=== PATIENT | male | born 1945 | race Caucasian/White ===

== ENCOUNTER 2019-01-16 11:47 | Emergency (ER) | payer MEDICARE ==
[2019-01-16 12:07] VITALS: RESP 18
[2019-01-16] MEDS ORDERED: PROPARACAINE 0.5% OPHTH DROPS 15 ML BTL LEFT EYE STA (12:45)
[2019-01-16] MEDS ORDERED: IBUPROFEN 800 MG TAB PO STA (12:45)
--- NOTE | 2019-01-16 12:45 | ED ---
Eye Problem HPI - General Chief complaint: Eye Problems Stated complaint: water blister left eye Time Seen by Provider: 01/16/19 12:16 Source: patient, RN notes reviewed, old records reviewed Mode of arrival: ambulatory Limitations: no limitations - History of Present Illness Initial comments: This is a 73-year-old male the ER for evaluation. Patient does say for evaluation of left eye pain. Patient is recent diagnosis of water spot water blister left eye was improving with eyedrops but currently is worsening he did come back and has not having or pain. Patient has no other complaints aside from. Denies any vision changes MD chief complaint: eye pain (r), eye redness, other (recent eye surgery) -: hour(s) Onset Description: gradual Location: left eye Place: home If Injury: none Eye Symptoms: burning, redness, pain Severity: mild, moderate Severity scale (1-10): 2 If Pain, Quality: burning, aching Consistency: constant Context: recent eye procedure Associated Symptoms: none Treatments Prior to Arrival: none - Related Data Home Medications Medication Instructions Recorded Confirmed Aspirin EC [Ecotrin Low Dose] 81 mg PO HS 01/16/19 01/16/19 Levocetirizine Dihydrochloride 5 mg PO HS 01/16/19 01/16/19 Magnesium Oxide [Mag-Ox] 250 mg PO HS 01/16/19 01/16/19 Metoprolol Succinate [Toprol Xl] 100 mg PO HS 01/16/19 01/16/19 Multivitamins, Thera [Multivitamin 1 tab PO HS 01/16/19 01/16/19 (formulary)] Simvastatin [Zocor] 20 mg PO HS 01/16/19 01/16/19 amLODIPine BESYLATE/BENAZEPRIL 1 cap PO Q48H 01/16/19 01/16/19 [Lotrel 10-20 MG] Allergies Allergy/AdvReac Type Severity Reaction Status Date / Time codeine Allergy Unknown Verified 01/16/19 12:20 Review of Systems ROS Statement: Those systems with pertinent positive or pertinent negative responses have been documented in the HPI. ROS Other: All systems not noted in ROS Statement are negative. Past Medical History Past Medical History: COPD, Hyperlipidemia, Hypertension History of Any Multi-Drug Resistant Organisms: None Reported Past Surgical History: Appendectomy Additional Past Surgical History / Comment(s): cataract Past Psychological History: No Psychological Hx Reported Smoking Status: Current every day smoker Past Alcohol Use History: None Reported Past Drug Use History: None Reported General Exam - General Exam Comments Initial Comments: Patient does have pterygium of lateral aspect left eye Limitations: no limitations General appearance: alert, in no apparent distress Head exam: Present: atraumatic, normocephalic, normal inspection Eye exam: Present: normal appearance, PERRL, EOMI. Absent: scleral icterus, conjunctival injection, periorbital swelling ENT exam: Present: normal exam, mucous membranes moist Neck exam: Present: normal inspection. Absent: tenderness, meningismus, lymphadenopathy Respiratory exam: Present: normal lung sounds bilaterally. Absent: respiratory distress, wheezes, rales, rhonchi, stridor Cardiovascular Exam: Present: regular rate, normal rhythm, normal heart sounds. Absent: systolic murmur, diastolic murmur, rubs, gallop, clicks GI/Abdominal exam: Present: soft, normal bowel sounds. Absent: distended, t enderness, guarding, rebound, rigid Extremities exam: Present: normal inspection, full ROM, normal capillary refill. Absent: tenderness, pedal edema, joint swelling, calf tenderness Back exam: Present: normal inspection Neurological exam: Present: alert, oriented X3, CN II-XII intact Psychiatric exam: Present: normal affect, normal mood Skin exam: Present: warm, dry, intact, normal color. Absent: rash Course Vital Signs 01/16/19 12:04 Temperature 98.2 F Pulse Rate 71 Respiratory 18 Rate Blood Pressure 122/81 O2 Sat by Pulse 98 Oximetry - Reevaluation(s) Reevaluation #1: 01/16/19 12:45 medical history is reviewed Reevaluation #2: 01/16/19 13:13 The patient's pain is improved Medical Decision Making - Medical Decision Making 73 male the ER for evaluation appears to have taken left eye, mild chemosis. Patient will continue artificial tears as symptomatically treatment and can be discharged Disposition Clinical Impression: Pterygium of left eye Disposition: HOME SELF-CARE Condition: Good Instructions (If sedation given, give patient instructions): Pterygium (ED) Is patient prescribed a controlled substance at d/c from ED?: No Referrals: Gómez Palomino DO [Primary Care Provider] - 1-2 days
[2019-01-16 13:31] VITALS: BP 120/71; PULSE 75; TEMP 98
== END 2019-01-16 13:31 | disposition home or self-care (01) ==
LOC: EC 11:47
DX: H11.002 Unspecified pterygium of left eye (principal); H11.422 Conjunctival edema, left eye; F17.200 Nicotine dependence, unspecified, uncomplicated; E78.5 Hyperlipidemia, unspecified; I10 Essential (primary) hypertension; Z79.82 Long term (current) use of aspirin; Z79.899 Other long term (current) drug therapy; Z88.5 Allergy status to narcotic agent
CPT/HCPCS: 99283

== ENCOUNTER → 2022-10-23 | Outpatient (CLI) | payer MEDICARE ==
[2022-10-23 13:33] LABS: African American GFR (CKD) >90 (>60 ml/min/1.73 sqM); Blood Urea Nitrogen 11 mg/dL (9-20); Non-African American GFR(CKD) 87 (>60 ml/min/1.73 sqM)
--- NOTE | 2022-10-23 14:36 | CT ---
EXAMINATION TYPE: CT chest w con DATE OF EXAM: 10/23/2022 COMPARISON: Chest CT May 02, 2010 HISTORY: SOB, COPD. Chronic bronchitis. CT DLP: 228.8 mGycm. Automated Exposure Control for Dose Reduction was Utilized. TECHNIQUE: CT scan of the thorax is performed following with IV Contrast, patient injected with 100 mL of Isovue 300. FINDINGS: LUNGS: Moderate to advanced underlying emphysematous change with posttreatment change through the rig ht upper lung as there is scarring and sutures extending from the right hilum. There are superior rig ht hilar retraction. Mild bibasilar linear scarring and/or atelectasis. No pleural effusion or pneumo thorax seen bilaterally. MEDIASTINUM: There are few prominent but subcentimeter lymph nodes throughout the mediastinum and rig ht hilar region. No greater than 1 cm thyroid adenopathy. No cardiomegaly. No pericardial effusion is seen. There is moderate to severe coronary artery calcification and/or stents present which is no tunde marker of underlying coronary artery disease. Ascending aortic aneurysm up to 4.1 cm axial image 35. Mild to moderate left atrial dilatation. OTHER: Degenerative narrowing bilateral glenohumeral joints. A thin-walled in the right kidney is jeannie pected and partially imaged on last axial images. IMPRESSION: Fairly advanced emphysematous change with posttreatment change to the right upper lung. N o acute pulmonary process.
== END | disposition home or self-care (01) ==
LOC: RADCTMAIN 12:51
PROVIDERS: ATTEND Family Medicine
DX: J43.9 Emphysema, unspecified (principal); J42 Unspecified chronic bronchitis
CPT/HCPCS: 82565; 84520; 71260; 36415; Q9967

== ENCOUNTER → 2023-09-15 | Outpatient (CLI) | payer MEDICARE ==
--- NOTE | 2023-09-15 09:02 | US ---
EXAMINATION TYPE: US abdomen limited DATE OF EXAM: 09/15/2023 COMPARISON: NONE CLINICAL INDICATION: Male, 78 years old with history of R10.11 RIGHT UPPER QUADRANT PAIN; RUQ pain x 1 week TECHNIQUE: Multiple sonographic images of the right upper quadrant are obtained. FINDINGS: EXAM MEASUREMENTS: Liver Length: 14.8 cm Gallbladder Wall: 0.2 cm CBD: 0.3 cm Right Kidney: 11.9x4.3x5.0 cm ANODISER NOTES: Pancreas: Tail obscured by overlying bowel gas Liver: 0.7x0.8x0.7cm anechoic area at the inferior lateral aspect of the right lobe Gallbladder: several mobile hyperechoic areas noted within measuring up to 0.9cm Evidence for sonographic Cardenas's sign: No CBD: wnl Right Kidney: 2.4x2.6x2.9cm septated cystic area noted at the lateral/mid kidney exam slightly limited by bowel gas IMPRESSION: 1. No evidence for acute process. 2. Right renal cyst with thin septation. 3. Simple appearing hepatic cyst. 4. Cholelithiasis.
== END | disposition home or self-care (01) ==
LOC: RADUSWWP 08:03
PROVIDERS: ATTEND Internal Medicine
DX: K80.20 Calculus of gallbladder without cholecystitis without obstruction (principal); K76.89 Other specified diseases of liver; N28.1 Cyst of kidney, acquired
CPT/HCPCS: 76705

== ENCOUNTER → 2023-09-26 | Outpatient (CLI) | payer MEDICARE ==
[2023-09-26 15:49] LABS: HCT 44.7 % (39.6-50.0); HGB 14.6 g/dL (13.0-17.0); MCH 32.2 pg (27.0-32.0); MCHC 32.7 g/dL (32.0-37.0); MCV 98.5 FL (80.0-97.0); Mean Platelet Volume 10.1 FL (9.5-12.2); NRBC Per 100 WBC 0 X 10*3/uL (0.00-0.01); Platelet Count 316 X 10*3/uL (140-440); RBC 4.54 X 10*6/uL (4.40-5.60); RDW 13.7 % (11.5-14.5); WBC 5.96 X 10*3/uL (4.50-10.00)
[2023-09-26 16:02] LABS: ALT 29 U/L (10-49); AST 40 U/L (14-35); Albumin 4.2 g/dL (3.8-4.9); Albumin/Globulin Ratio 1.75 Ratio (1.60-3.17); Alkaline Phosphatase 111 U/L (41-126); Blood Urea Nitrogen 10.8 mg/dL (9.0-27.0); Calcium 9.5 mg/dL (8.7-10.3); Carbon Dioxide 27.6 mmol/L (21.6-31.8); Chloride 100 mmol/L (96-109); Globulin 2.4 g/dL (1.6-3.3); Glucose 87 mg/dL (70-110); Potassium 4.9 mmol/L (3.5-5.5); Sodium 140 mmol/L (135-145); Total Bilirubin 0.4 mg/dL (0.3-1.2); Total Protein 6.6 g/dL (6.2-8.2)
== END | disposition home or self-care (01) ==
LOC: LABWHC1 11:55
PROVIDERS: ATTEND Surgery
DX: K80.20 Calculus of gallbladder without cholecystitis without obstruction (principal)
CPT/HCPCS: 36415; 80053; 85027

== ENCOUNTER 2023-10-06 06:18 | Day surgery (SDC) | payer MEDICARE ==
[2023-10-06] MEDS: LACTATED RINGERS 1,000 ML IV SCH (06:52)
[2023-10-06] MEDS: DEXAMETHASONE SOD PHOSPHATE 4 MG/ML 1 ML VIAL IV ONE (07:10)
[2023-10-06] MEDS: ACETAMINOPHEN TAB 500 MG TAB PO PRN (07:10)
[2023-10-06] MEDS: ONDANSETRON 4 MG/2 ML VIAL IVP ONE (07:10)
[2023-10-06] MEDS: HEPARIN SODIUM,PORCINE 5,000 UNIT/ML 1 ML VIAL SQ PRN (07:11)
[2023-10-06] MEDS ORDERED: PHENYLEPHRINE 10 MG/ML VIAL ONE (07:32)
[2023-10-06] MEDS ORDERED: NEOSTIGMINE 1 MG/ML 10 ML VIAL ONE (07:32)
[2023-10-06] MEDS ORDERED: SUCCINYLCHOLINE CHLORIDE 200 MG/10 ML VIAL IV ONE (07:32)
[2023-10-06] MEDS ORDERED: fentaNYL (PF) 50 MCG/ML 2 ML AMP ONE (07:32)
[2023-10-06] MEDS ORDERED: KETOROLAC 15 MG/ML 1 ML VIAL ONE (07:32)
[2023-10-06] MEDS ORDERED: GLYCOPYRROLATE 0.2 MG/ML 2 ML VIAL ONE (07:32)
[2023-10-06] MEDS ORDERED: PROPOFOL 10 MG/ML 20 ML VIAL IV ONE (07:32)
[2023-10-06] MEDS ORDERED: MIDAZOLAM 2 MG/2 ML VIAL ONE (07:32)
[2023-10-06] MEDS ORDERED: LIDOCAINE 1% INJ 10MG/ML (20 ML MDV) ONE (07:32)
[2023-10-06] MEDS ORDERED: ROCURONIUM 10 MG/ML (5 ML VIAL) IV ONE (07:32)
[2023-10-06] MEDS: LIDOCAINE 1%-EPI 1:100,000 20 ML VIAL SQ ONE (08:01)
[2023-10-06] MEDS: LACTATED RINGERS 1,000 ML IV ONE (08:25)
--- NOTE | 2023-10-06 08:28 | P.OP ---
Date of Procedure: 10/06/23 Preoperative Diagnosis: cholecystitis Postoperative Diagnosis: cholecystitis Procedure(s) Performed: laparoscopic cholecystectomy Anesthesia: RIMA Surgeon: Ga Cadena Estimated Blood Loss (ml): 5 Pathology: other (gallbladder) Condition: stable Disposition: PACU Description of Procedure: The patient was placed on the operating table. The patient received a general endotracheal tube anesthesia. The patients abdomen was prepped and draped in the usual sterile fashion. Through an infraumbilical stab incision, the fascia of the anterior abdominal wall was grasped with a pair of Kochers and then the Veress needle was placed in the peritoneal cavity. Position of the Veress needle was confirmed with positive drop test. The abdomen was then insufflated. After adequate insufflation, the 10 mm trocar was placed in the peritoneal cavity. Following this the laparoscope was placed in the peritoneal cavity. The patient was placed in the head-up, right side up position and then a 5 mm trocar was placed in the right lateral and right subcostal position under direct visualization. A 8 mm trocar was placed in the epigastric position. The gallbladder was grasped in the fundus and infundibulum. Traction on the gallbladder was placed in the lateral and the cephalad positions. The triangle of Calot was visualized.. The cystic duct was bluntly dissected until the union of the cystic duct and common bile duct was seen. A critical view of safety was achieved. The cystic duct was then divided and sealed with the Harmonic scissors. A PDS Endoloop was then placed throughout the cystic duct stump. The cystic artery divided and sealed with the Harmonic scissors. The gallbladder was then removed from the liver bed using Harmonic scissors. The gallbladder was then extracted through the epigastric port site. Operative field was checked for any bleeding spots and Harmonic scissors was used to coagulate the liver bed. The abdomen was irrigated. The trocars were removed. The skin was closed using interrupted 3-0 Vicryl suture. Dermabond dressing were applied. The patient tolerated the procedure well.
--- NOTE | 2023-10-06 08:29 | P.GSHP ---
History of Present Illness H&P Date: 10/06/23 Chief Complaint: cholelithiasis Past Medical History Past Medical History: COPD, GERD/Reflux, Hyperlipidemia, Hypertension, Osteoarthritis (OA) Additional Past Medical History / Comment(s): lung infection 15yrs ago that created a hole per pt. tx and resolved. abdominal discomfort r/t gallbladder History of Any Multi-Drug Resistant Organisms: None Reported Past Surgical History: Appendectomy, Bowel Resection Additional Past Surgical History / Comment(s): cataract, colonoscopy Additional Past Anesthesia/Blood Transfusion Reaction / Comment(s): very slow to wake up from colonoscopy Smoking Status: Current every day smoker - Past Family History Mother Family Medical History: Cancer Additional Family Medical History / Comment(s): lung Brother(s) Family Medical History: Cancer Additional Family Medical History / Comment(s): Lung and brain cancer Medications and Allergies Home Medications Medication Instructions Recorded Confirmed Type Aspirin EC [Ecotrin Low Dose] 81 mg PO HS 01/16/19 10/06/23 History Levocetirizine Dihydrochloride 5 mg PO HS 01/16/19 10/06/23 History Metoprolol Succinate [Toprol Xl] 100 mg PO HS 01/16/19 10/06/23 History Multivitamins, Thera [Multivitamin 1 tab PO HS 01/16/19 10/06/23 History (formulary)] Simvastatin [Zocor] 20 mg PO HS 01/16/19 10/06/23 History Albuterol Sulfate [Ventolin HFA] 2 puff INHALATION QID PRN 10/02/23 10/06/23 History Azithromycin [Zithromax] 250 mg PO Q48H 10/02/23 10/06/23 History Fluticasone/Umeclidin/Vilanter 1 puff INHALATION DAILY 10/02/23 10/06/23 History [Trelegy Ellipta 200-62.5-25] Unk Mucinex 1 tab PO DAILY 10/02/23 10/06/23 History Unk Vitamin D3 1 tab PO DAILY 10/02/23 10/06/23 History Allergies Allergy/AdvReac Type Severity Reaction Status Date / Time codeine Allergy n/v Verified 10/06/23 06:49 Surgical - Exam Vital Signs Temp Pulse Resp BP Pulse Ox 96.9 F L 102 H 18 127/89 97 10/06/23 06:47 10/06/23 06:47 10/06/23 06:47 10/06/23 06:47 10/06/23 06:47 Assessment and Plan Plan: symptomatically thigh cyst. Patient be scheduled for laparoscopic cholecystectomy
[2023-10-06] MEDS: fentaNYL (PF) 50 MCG/ML 2 ML AMP IV PRN (08:49)
[2023-10-06 09:02] VITALS: TEMP 97
[2023-10-06 10:33] VITALS: RESP 16
--- NOTE | 2023-10-06 10:38 | P.CRDCN ---
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 Postoperatively he was noted to be in atrial fibrillation and subsequently an EKG was performed and showed atrial fibrillation with controlled heart rate. The patient is not aware of any prior history of atrial fibrillation. He is not experiencing any symptoms at this point of any heart racing or fluttering or dizziness or lightheadedness or presyncope or syncope or any symptoms of chest pain or chest discomfort. He does have shortness of breath with exertion. He is currently in atrial fibrillation with controlled heart rates. The examination is remarkable for irregular rhythm with a soft systolic murmur and clear breathing sounds bilaterally and no carotid bruit and no edema was noted. Assessment Status post gallbladder surgery Atrial fibrillation with controlled heart rate which is new to the patient Hypertension Coronary artery disease by history Plan Continue the current medical regimen The heart rate appears to be controlled with no AV maribell meliza agents on board Start the patient on oral anticoagulation once he is stable from the surgical standpoint to review and probably as an outpatient Follow-up with the patient as an outpatient Past Medical History Past Medical History: COPD, GERD/Reflux, Hyperlipidemia, Hypertension, Osteoarthritis (OA) Additional Past Medical History / Comment(s): lung infection 15yrs ago that created a hole per pt. tx and resolved. abdominal discomfort r/t gallbladder History of Any Multi-Drug Resistant Organisms: None Reported Past Surgical History: Appendectomy, Bowel Resection Additional Past Surgical History / Comment(s): cataract, colonoscopy Additional Past Anesthesia/Blood Transfusion Reaction / Comment(s): very slow to wake up from colonoscopy Smoking Status: Current every day smoker - Past Family History Mother Family Medical History: Cancer Additional Family Medical History / Comment(s): lung Brother(s) Family Medical History: Cancer Additional Family Medical History / Comment(s): Lung and brain cancer Medications and Allergies Home Medications Medication Instructions Recorded Confirmed Type Aspirin EC [Ecotrin Low Dose] 81 mg PO HS 01/16/19 10/06/23 History Levocetirizine Dihydrochloride 5 mg PO HS 01/16/19 10/06/23 History Metoprolol Succinate [Toprol Xl] 100 mg PO HS 01/16/19 10/06/23 History Multivitamins, Thera [Multivitamin 1 tab PO HS 01/16/19 10/06/23 History (formulary)] Simvastatin [Zocor] 20 mg PO HS 01/16/19 10/06/23 History Albuterol Sulfate [Ventolin HFA] 2 puff INHALATION QID PRN 10/02/23 10/06/23 History Azithromycin [Zithromax] 250 mg PO Q48H 10/02/23 10/06/23 History Fluticasone/Umeclidin/Vilanter 1 puff INHALATION DAILY 10/02/23 10/06/23 History [Trelesayda Ellipta 200-62.5-25] Unk Mucinex 1 tab PO DAILY 10/02/23 10/06/23 History Unk Vitamin D3 1 tab PO DAILY 10/02/23 10/06/23 History Allergies Allergy/AdvReac Type Severity Reaction Status Date / Time codeine Allergy n/v Verified 10/06/23 06:49 Physical Exam Vitals: Vital Signs Temp Pulse Resp BP Pulse Ox 10/06/23 10:10 68 16 99/69 98 10/06/23 09:40 68 19 103/65 97 10/06/23 09:25 75 12 121/69 93 L 10/06/23 09:10 72 12 116/67 97 10/06/23 08:55 77 11 L 116/67 91 L 10/06/23 08:40 81 16 117/65 96 10/06/23 08:25 97.0 F L 80 16 122/75 100 10/06/23 06:47 96.9 F L 102 H 18 127/89 97 Intake and Output 10/05/23 10/06/23 10/06/23 22:59 06:59 14:59 Intake Total 200 850 Balance 200 850 Intake: IV 200 850 Other: Weight 68.4 kg Results Current Medications Generic Name Dose Route Start Last Admin Trade Name Freq PRN Reason Stop Dose Admin Lactated Ringer's 1,000 mls @ 20 mls/hr 10/06/23 06:30 10/06/23 06:52 Lactated Ringers IV 11/05/23 06:31 1,000 mls .Q24H PENNY Administration Intake and Output 10/05/23 10/06/23 10/06/23 22:59 06:59 14:59 Intake Total 200 850 Balance 200 850 Intake: IV 200 850 Other: Weight 68.4 kg
[2023-10-06 12:06] VITALS: BP 126/92; PULSE 88
== END 2023-10-06 12:15 | disposition home or self-care (01) ==
LOC: OR 06:18
PROVIDERS: ATTEND Surgery
DX: K80.10 Calculus of gallbladder with chronic cholecystitis without obstruction (principal); Z88.5 Allergy status to narcotic agent; I10 Essential (primary) hypertension; J43.9 Emphysema, unspecified; E78.00 Pure hypercholesterolemia, unspecified; K21.9 Gastro-esophageal reflux disease without esophagitis; I48.91 Unspecified atrial fibrillation; I25.10 Atherosclerotic heart disease of native coronary artery without angina pectoris; F17.210 Nicotine dependence, cigarettes, uncomplicated; Z90.49 Acquired absence of other specified parts of digestive tract; Z79.51 Long term (current) use of inhaled steroids; Z79.82 Long term (current) use of aspirin; Z79.899 Other long term (current) drug therapy
CPT/HCPCS: 88304; 47562; J2250; J0330; J1644; J1100; J2710; J0690; J2405; J2001; J3010; J1885; J2704; J2371

== ENCOUNTER → 2023-12-29 | Outpatient (CLI) | payer MEDICARE ==
[2023-12-29 10:57] LABS: African American GFR (CKD) >90 (>60 ml/min/1.73 sqM); Blood Urea Nitrogen 11 mg/dL (9-20); Non-African American GFR(CKD) >90 (>60 ml/min/1.73 sqM)
--- NOTE | 2023-12-29 17:08 | CT ---
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 Coronal/sagittal reconstructions performed. 3-D reconstructions generated on a dedicated [employer] workstation. CT DLP: 513mGycm. Automatic exposure control utilized for a dose reduction. FINDINGS: The heart is upper limits of normal in size without pericardial effusion. Scattered three-vessel sheree nary artery calcifications are present. Scattered moderate atherosclerotic calcifications throughout the thoracic aorta. Ectatic aortic root at 3.9 cm is unchanged. Mild aneurysm ascending aorta at 4.2 cm is unchanged. Moderate atherosclerotic arch calcifications with conventional arch vessel branching anatomy. Moderate atherosclerotic narrowing at the origin of both brachiocephalic and left common carotid daily jose antonio. Possible severe atherosclerotic stenosis origin of the right subclavian artery and within the p roximal left subclavian artery located 2.5 cm above its origin. Mild aneurysm mid and lower descending thoracic aorta to 3.1 cm. Large caliber to the main right and left pulmonary arteries up to 3.0 cm suggesting underlying pulmon jordana hypertension. No thoracic lymphadenopathy by CT size. Chronic distortion with volume loss and chronic cavitary change and calcification along the right upp er lobe. Biapical pleural-parenchymal scarring. Advanced emphysematous change. Old calcified granulomas within the lower lungs. Right renal cyst measuring 2.9 cm. DISH lower thoracic spine. IMPRESSION: 1. Similar mild aneurysm ascending aorta at 4.2 cm. Scattered moderate atherosclerotic changes throug hout. 2. Moderate stenoses at the origin of the brachiocephalic artery and left common carotid artery. 3. Possible severe stenosis at the origin of the right subclavian artery and within the proximal left subclavian artery located 2.5 cm above its origin. 4. COPD with advanced emphysema, evidence of prior granulomatous disease, and pulmonary arterial hype rtension. 5. Chronic distortion, volume loss, and calcification along the right upper lobe, stable appearance f rom 10/23/2022.
== END | disposition home or self-care (01) ==
LOC: RADCTMAIN 10:17
PROVIDERS: ATTEND Surgery
DX: I71.23 Aneurysm of the descending thoracic aorta, without rupture (principal); I27.21 Secondary pulmonary arterial hypertension; I65.22 Occlusion and stenosis of left carotid artery; J43.9 Emphysema, unspecified; J44.9 Chronic obstructive pulmonary disease, unspecified
CPT/HCPCS: 82565; 84520; 71275; 36415; Q9967

== ENCOUNTER → 2024-01-06 | Outpatient (CLI) | payer MEDICARE | END | disposition home or self-care (01) | LOC: LABPAT 15:03 | PROVIDERS: ATTEND Internal Medicine Interventional Cardiology | DX: Z01.812 Encounter for preprocedural laboratory examination (principal); I25.10 Atherosclerotic heart disease of native coronary artery without angina pectoris | CPT/HCPCS: 80051; 82565; 84520; 85025 ==

== ENCOUNTER 2024-01-15 07:16 | Day surgery (SDC) | payer MEDICARE ==
[2024-01-15] MEDS ORDERED: ASPIRIN 325 MG TAB ONE ×2 (07:29)
[2024-01-15] MEDS ORDERED: VERAPAMIL 2.5 MG/ML 2 ML AMP ONE ×2 (11:59)
[2024-01-15] MEDS ORDERED: SODIUM CHLORIDE 0.9% 1,000 ML BAG ONE (12:00)
[2024-01-15] MEDS ORDERED: SODIUM CHLORIDE 0.9% 500 ML BAG ONE (12:00)
[2024-01-15] MEDS ORDERED: LIDOCAINE 1% INJ 10MG/ML (20 ML MDV) ONE ×2 (12:00)
[2024-01-15] MEDS ORDERED: HEPARIN SODIUM,PORCINE 10,000 UNIT/ML 1 ML VIAL ONE (12:00)
[2024-01-15] MEDS ORDERED: HEPARIN SODIUM 1,000 UN/ML (10ML VL) ONE ×2 (12:04)
[2024-01-15] MEDS ORDERED: MIDAZOLAM 2 MG/2 ML VIAL ONE (12:04)
[2024-01-15] MEDS ORDERED: fentaNYL (PF) 50 MCG/ML 2 ML AMP ONE ×2 (12:58)
[2024-01-15] MEDS: IOPAMIDOL-370 200ML BTL INJ ONE ×2 (13:06)
--- NOTE | 2024-01-23 15:54 | CC ---
CARDIAC CATHETERIZATION REPORT PERFORMING PHYSICIAN: Marito Murdock. PROCEDURES PERFORMED: 1. Selective right and left coronary angiogram and left heart catheterization. 2. IFR of the LAD. INDICATION: Cardiomyopathy. COMPLICATIONS: None. LEVEL OF SEDATION: Moderate, with sedation length of 38 minutes. PROCEDURE DESCRIPTION: After obtaining an informed consent, the patient was brought to the cardiac labor relations representative. The right radial artery was cannulated using micropuncture technique under ultrasound guidance. The micropuncture wire passed easily. Then, I placed a 6-Vietnamese sheath. I gave the patient 2 mg of verapamil intra-arterial. 5000 of heparin given intravenous. Selective right and left coronary angiogram performed using JR4 and JL4 catheters. Left heart catheterization was performed using the JR4 catheter. After that, I decided to do an IFR of the LAD. After zeroing the Doppler wire and equalizing between the Doppler wire and the guiding catheter, which was JL4 guiding catheter, the left main was engaged and the LAD was wired with IFR came to be at 0.90. The procedure was completed with no complication. SELECTIVE CORONARY ANGIOGRAM: 1. The right coronary artery is a medium caliber vessel, nondominant vessel with mild disease only. 2. The left main . 3. The left circumflex is a large-caliber vessel, dominant vessel with mild to moderate diffuse disease with no high-grade stenosis. 4. LAD; the ostial LAD has a lesion appeared to be in the range of 50% documented to be non flow-limiting by Doppler wire with IFR of 0.90. HEMODYNAMICS: The LVEDP was 14 mmHg with no significant gradient across aortic valve. CONCLUSION: Intermediate disease involving the proximal LAD. The disease documented to be non flow- limiting by Doppler wire with IFR of 0.90. POSTPROCEDURE MANAGEMENT: Medical treatment. MMODL / IJN: [id number] /
== END 2024-01-15 16:20 | disposition home or self-care (01) ==
LOC: CATHCVL 07:16
PROVIDERS: ATTEND Internal Medicine Interventional Cardiology
DX: I25.10 Atherosclerotic heart disease of native coronary artery without angina pectoris (principal); I42.9 Cardiomyopathy, unspecified; J44.9 Chronic obstructive pulmonary disease, unspecified; I10 Essential (primary) hypertension; I48.91 Unspecified atrial fibrillation; Z79.01 Long term (current) use of anticoagulants; Z79.899 Other long term (current) drug therapy
CPT/HCPCS: 93458; 93799

== ENCOUNTER → 2024-03-03 | Outpatient (CLI) | payer MEDICARE ==
--- NOTE | 2024-03-03 13:56 | CT ---
EXAMINATION TYPE: CT abdomen pelvis wo con CT DLP: 660 mGycm, Automated exposure control for dose reduction was used. DATE OF EXAM: 03/03/2024 1:25 PM COMPARISON: Abdominal ultrasound 09/15/2023, CTA chest 12/29/2023 CLINICAL INDICATION:Male, 78 years old with history of R63.4 ABNORMAL WEIGHT LOSS; abdominal pain, we ight loss TECHNIQUE: Standard CT of the abdomen and pelvis without IV or oral contrast. Lack of IV or oral co ntrast limits evaluation of solid and hollow organ viscera. Coronal and sagittal reformats were perfo rmed. FINDINGS: Evaluation is also limited due to paucity of intra-abdominal fat. LOWER CHEST: Advanced centrilobular emphysematous changes. New right lower lobe 1.4 cm nodular opacit y partially visualized (series 4, image 1). Calcified granulomas within the right lower lobe. ABDOMEN LIVER: Few subcentimeter hypoattenuating structures are demonstrated throughout the liver, which are too small to accurately characterize but statistically likely to represent simple hepatic cysts GALLBLADDER AND BILE DUCTS: The gallbladder is surgically absent. No biliary ductal dilatation. PANCREAS: Unremarkable noncontrast appearance SPLEEN: Unremarkable noncontrast appearance ADRENAL GLANDS: Unremarkable noncontrast appearance. KIDNEYS AND URETERS: No evidence of hydronephrosis. Right mid kidney hypodense 2.8 cm lesion likely r epresenting a cyst. Additional left mid kidney likely 1.3 cm cyst. Left superior pole hyperdense 7 mm focus which likely represents a proteinaceous or hemorrhagic cyst. Nonobstructive bilateral renal ca lculi. PELVIS BLADDER: Unremarkable REPRODUCTIVE: Prostate is enlarged in size measuring 5.9 cm in transverse dimension. Central prostate calcifications. ABDOMEN & PELVIS STOMACH AND BOWEL: Small hiatal hernia, duodenum is unremarkable. No focal bowel wall thickening or s urrounding inflammatory changes identified. Postsurgical changes of the colon within the right lower quadrant with sutures identified. No evidence of bowel obstruction. PERITONEUM: No evidence of pneumoperitoneum or free fluid. VASCULATURE: Moderate to severe atherosclerotic calcifications are present throughout the abdominal a cherie and its branches. No evidence of aortic aneurysm. Pelvic phlebolith. MUSCULOSKELETAL: No acute osseous abnormalities. Grade 1 retrolisthesis of L5 on S1. Mild multilevel degenerative disc disease. LYMPH NODES: No gross evidence for lymphadenopathy. SOFT TISSUE/ABDOMINAL WALL: Unremarkable IMPRESSION: 1. No acute intra-abdominal/pelvic process within the limitations of a noncontrast exam. 2. Nonobstructive bilateral renal calculi with likely bilateral renal cysts. 3. Advanced COPD changes with new right lower lobe partially visualized 1.4 cm nodular opacity. Furth er evaluation with PET/CT is recommended. 4. Prostatomegaly. [facility], , 03/03/2024 1:54 PM
== END | disposition home or self-care (01) ==
LOC: RADCTMAIN 12:12
PROVIDERS: ATTEND Family Medicine
DX: R63.4 Abnormal weight loss
CPT/HCPCS: 74176

== ENCOUNTER → 2024-04-22 | Outpatient (CLI) | payer MEDICARE ==
--- NOTE | 2024-04-22 18:52 | PE ---
EXAMINATION TYPE: PET CT fusion skull to thigh DATE OF EXAM: 04/22/2024 CLINICAL INDICATION:Male, 78 years old with history of C34.31 RIGHT LUNG MASS; TECHNIQUE: Following the intravenous administration of 11.49 mCi of F-18 FDG, whole body images are performed from the skull base to the midthigh. Images are reviewed on the computer in the coronal, axial, and sagittal planes. Reconstructed rotating images are created on independent workstation and reviewed on the computer. A non-contrast CT is performed in conjunction with the PET scan. Glucose level 84 mg/dL CT DLP: 367 mGycm, Automated exposure control for dose reduction was used. COMPARISON: CT 03/03/2024, 12/29/2023, PET/CT None, MRI: None FINDINGS: Mediastinal SUV mean is 2.1. Hepatic parenchyma SUV mean is 2.3. SKULL BASE AND NECK: Left parotid gland lesion max SUV 13.0. Visualized on CT imaging. CHEST, MEDIASTINUM, AND HILAR REGION: * Right upper lung FDG avid linear scarring tissue max SUV 4.6. Morphology not significantly changed from prior CT. * Mild uptake right pulmonary hilum max SUV 4.4. * Mild uptake within AP window lymph node measuring 6 mm Max SUV 3.5. * Mild uptake within the left pulmonary hilum max SUV 2.2. ABDOMEN AND PELVIS: No suspicious radiotracer activity. MUSCULOSKELETAL STRUCTURES: No suspicious radiotracer activity. OTHER CT: Moderate emphysema changes. Atherosclerosis of the arterial vasculature including the intra cranial vasculature, carotid bifurcations and coronary arteries. 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 Prostatomegaly. Posterior fat-containing Bucky chdalek hernia. IMPRESSION: 1. FDG activity in right upper lung scarring with calcifications which is similar morphology to prio r exam on 12/29/2023 and is favored to be secondary to infectious/inflammatory process. Continued surv eillance recommended. 2. 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 C onsider ultrasound imaging for further evaluation. [facility], , 04/22/2024 6:50 PM
== END | disposition home or self-care (01) ==
LOC: RADPETMAIN 12:18
PROVIDERS: ATTEND Family Medicine
DX: C34.31 Malignant neoplasm of lower lobe, right bronchus or lung (principal); J43.9 Emphysema, unspecified; I25.10 Atherosclerotic heart disease of native coronary artery without angina pectoris; K46.9 Unspecified abdominal hernia without obstruction or gangrene; J98.4 Other disorders of lung
CPT/HCPCS: 78815; A9552

== ENCOUNTER 2024-05-16 03:12 | Inpatient (IN) | payer MEDICARE ==
[2024-05-16] MEDS: ALBUTEROL NEBULIZED 2.5 MG/3 ML INHALATION SCH (03:45)
[2024-05-16] MEDS: IPRATROPIUM-ALBUTEROL 3 ML NEB INHALATION STA ×2 (03:45→09:19)
--- NOTE | 2024-05-16 03:45 | ED ---
General Adult HPI - General Chief complaint: Arrhythmia/Palpitations Stated complaint: AIMEE Time Seen by Provider: 05/16/24 03:27 Source: patient, EMS Mode of arrival: EMS Limitations: no limitations - History of Present Illness Initial comments: Patient is a 78-year-old male presenting today for shortness of breath. States he had 2 "spells between today and yesterday where he woke up feeling very short of breath. On EMS arrival today he received 125 mg of Solu-Medrol and 2 breathing treatments and states he feels much better. He currently denies any chest pain, recent fevers but did felt feel chilled when he felt short of breath earlier. Is on Xarelto and metoprolol for A-fib. No recent fevers. No hemoptysis or sputum production. No abdominal pain black or bloody stools does endorse for 2 days of diarrhea. - Related Data Home Medications Medication Instructions Recorded Confirmed Levocetirizine Dihydrochloride 5 mg PO HS 01/16/19 05/16/24 Metoprolol Succinate [Toprol Xl] 100 mg PO HS 01/16/19 05/16/24 Multivitamins, Thera [Multivitamin 1 tab PO HS 01/16/19 05/16/24 (formulary)] Simvastatin [Zocor] 20 mg PO HS 01/16/19 05/16/24 Albuterol Sulfate [Ventolin HFA] 2 puff INHALATION RT-QID PRN 10/02/23 05/16/24 Azithromycin [Zithromax] 250 mg PO Q2D@0900 10/02/23 05/16/24 Fluticasone/Umeclidin/Vilanter 1 puff INHALATION RT-DAILY 10/02/23 05/16/24 [Trelegy Ellipta 200-62.5-25] Rivaroxaban [Xarelto] 15 mg PO HS 05/16/24 05/16/24 guaiFENesin [Mucinex] 600 mg PO DAILY 05/16/24 05/16/24 lisinopriL [Zestril] 2.5 mg PO HS 05/16/24 05/16/24 Allergies Allergy/AdvReac Type Severity Reaction Status Date / Time codeine Allergy Nausea & Verified 05/16/24 08:29 Vomiting Review of Systems ROS Statement: Those systems with pertinent positive or pertinent negative responses have been documented in the HPI. ROS Other: All systems not noted in ROS Statement are negative. Past Medical History Past Medical History: COPD, GERD/Reflux, Hyperlipidemia, Hypertension, Osteoarthritis (OA) Additional Past Medical History / Comment(s): lung infection 15yrs ago that created a hole per pt. tx and resolved. abdominal discomfort r/t gallbladder History of Any Multi-Drug Resistant Organisms: None Reported Past Surgical History: Appendectomy, Bowel Resection Additional Past Surgical History / Comment(s): cataract, colonoscopy Additional Past Anesthesia/Blood Transfusion Reaction / Comment(s): very slow to wake up from colonoscopy Past Psychological History: No Psychological Hx Reported Smoking Status: Current every day smoker Past Alcohol Use History: None Reported Past Drug Use History: None Reported - Past Family History Mother Family Medical History: Cancer Additional Family Medical History / Comment(s): lung Brother(s) Family Medical History: Cancer Additional Family Medical History / Comment(s): Lung and brain cancer General Exam - General Exam Comments Initial Comments: PE: CONSTITUTIONAL: No apparent distress, chronically ill-appearing, nontoxic SKIN: Warm, dry, no jaundice, hives or petechiae EYES: Pupils are equally round, extraocular movements intact without nystagmus, clear conjunctiva, non-icteric sclera HENT: Normocephalic, atraumatic, moist mucus membranes, oropharynx clear without exudates NECK: , Full range of motion, normal appearance PULMONARY: Significantly, decreased air movement bilaterally, no rales, rhonchi in RLL normal excursion, no accessory muscle use and no stridor CARDIOVASCULAR: Irreguarly irregular rate and rhythm, tachycardia, normal S1 and S2. No appreciated murmurs, rubs or gallops. Strong radial pulses with intact distal perfusion. No lower extremity edema GASTROINTESTINAL: Soft, active bowel sounds throughout, non-tender, non- distended, no palpable masses, no rebound or guarding. No hepatosplenomegaly MUSCULOSKELETAL: Extremities have no gross deformity, no edema, redness, or swelling. No calf swelling NEUROLOGIC:_a/o x 3, GCS 15, normal mentation and speech. Moves all extremities x 4 without motor or sensory deficit PSYCHIATRIC:_normal mood and affect, thought process is clear and linear Limitations: no limitations Course Vital Signs 05/16/24 05/16/24 05/16/24 03:13 03:48 04:04 Temperature 98.7 F Pulse Rate 156 H 117 H 118 H Respiratory 20 Rate Blood Pressure 100/89 O2 Sat by Pulse 95 Oximetry 05/16/24 05/16/24 05/16/24 04:05 04:15 04:34 Temperature Pulse Rate 115 H 120 H 123 H Respiratory 18 18 Rate Blood Pressure 127/82 117/76 O2 Sat by Pulse 98 93 L Oximetry 05/16/24 05/16/24 05/16/24 06:00 08:45 09:07 Temperature Pulse Rate 110 H 108 H 116 H Respiratory 18 18 Rate Blood Pressure 115/83 107/86 O2 Sat by Pulse 96 96 Oximetry 05/16/24 05/16/24 05/16/24 09:18 11:44 12:45 Temperature Pulse Rate 122 H 117 H 130 H Respiratory 20 Rate Blood Pressure 117/89 O2 Sat by Pulse 97 Oximetry 05/16/24 05/16/24 05/16/24 12:48 12:55 13:38 Temperature Pulse Rate 93 128 H 125 H Respiratory 18 18 Rate Blood Pressure 126/87 141/107 O2 Sat by Pulse 98 97 Oximetry EKG Findings - EKG Comments: EKG Findings:: A-fib with RVR, rate 141 bpm, QRS duration 91 ms, QT/QTc 266/348 ms, normal axis, Q waves are present in V1, no ST elevations or depressions, comparted To EKG performed on 09/15/2023, no significant changes from prior co mpared to EKG performed in October 2023, questionable slight [address] depression new in lead II today though there is some artifact present, otherwise no new significant ST elevations or depressions Medical Decision Making - Medical Decision Making Was pt. sent in by a medical professional or institution (, PA, PARTITION MAKING MACHINE OPERATOR, urgent care, hospital, or prison...) When possible be specific @ -No Did you speak to anyone other than the patient for history (EMS, parent, family, police, friend...)? What history was obtained from this source @ -No Did you review nursing and triage notes (agree or disagree)? Why? @ -I reviewed and agree with nursing and triage notes Were old charts reviewed (outside hosp., previous admission, EMS record, old EKG, old radiological studies, urgent care reports/EKG's, prison records)? Report findings @ -Medical records reviewed Differential Diagnosis (chest pain, altered mental status, abdominal pain women, abdominal pain men, vaginal bleeding, weakness, fever, dyspnea, syncope, headache, dizziness, GI bleed, back pain, seizure, CVA, palpatations, mental health, musculoskeletal)? @ -Differential Dyspnea: Coronary syndrome, arrhythmia, tamponade, asthma, COPD, pneumonia, pneumothorax, pulmonary effusion, anemia, neuromuscular, this is not meant to be an all-inclusive list. EKG interpreted by me (3pts min.). @ -As above X-rays interpreted by me (1pt min.). @No cardiomegaly, consolidations or pleural effusions, lungs do appear hyperinflated CT interpreted by me (1pt min.). @ -None done U/S interpreted by me (1pt. min.). @ -None done What testing was considered but not performed or refused? (CT, X-rays, U/S, labs)? Why? @ -None What meds were considered but not given or refused? Why? @I did consider Cardizem and metoprolol however I suspect patient's tachycardia is secondary to albuterol treatments and COPD exacerbation as opposed to primarily A-fib with RVR so these were held, BP stabe Did you discuss the management of the patient with other professionals (professionals i.e. , PA, PARTITION MAKING MACHINE OPERATOR, lab, RT, psych nurse, social worker aide, energy project engineer, teacher, chief school finance officer, binder caser)? Give summary @ -No Was smoking cessation discussed for >3mins.? @ -No Was critical care preformed (if so, how long)? @Yes, 35 minutes Were there social determinants of health that impacted care today? How? (Homele ssness, low income, unemployed, alcoholism, drug addiction, transportation, low edu. Level, literacy, decrease access to med. care, senior living, rehab)? @ -No Was there de-escalation of care discussed even if they declined (Discuss DNR or withdrawal of care, Hospice)? @ -No What co-morbidities impacted this encounter? (DM, HTN, Smoking, COPD, CAD, Cancer, CVA, ARF, Chemo, Hep., AIDS, mental health diagnosis, sleep apnea, morbid obesity)? A fib, COPD Was patient admitted / discharged? Hospital course, mention meds given and route, prescriptions, significant lab abnormalities, going to OR and other pe rtinent info. [id number] M with a past medical history of COPD, emphysema, atrial fibrillation on Xarelto presenting today for shortness of breath. On assessment patient is chronically ill-appearing but in no acute distress. When pt removed from O2, pulse ox remains in high 90s on RA throughout conversation. Has decreased breath sounds in bilateral lung rasmussen, decreased air movement throughout. Rhonchi RLL. Patient is tachycardic with rates between 110 and 130 in A-fib with RVR on arrival BP w/in acceptable limits. Will treat patient COPD exacerbation prior to treating patient's heart rate as it appears primary issue is respiratory at this time. [id number] nebulizer treatments, steroids Rocephin and azithromycin ordered as well as basic labs, CXR, EKG. Pt agreeable with POC. BNP 2840- pt does not appear clinically fluid overloaded, no rales crackles or LE edema. On reassessment Patient does endorse mild improvement of symptoms, he does have some improvement in air movement bilaterally on repeat auscultation of his lungs, though aeration is still relatively poor. Repeat nebulizer ordered, plan for admission. Pt agreeable with POC. Case discussed with Dr. Nuno, kindly accepts patient for admission. Undiagnosed new problem with uncertain prognosis? @ -No Drug Therapy requiring intensive monitoring for toxicity (Heparin, Nitro, Insulin, Cardizem)? @ -No Were any procedures done? @ -No Diagnosis/symptom? @ -COPD exacerbation, a fib w. RvR Acute, or Chronic, or Acute on Chronic? @Acute Uncomplicated (without systemic symptoms) or Complicated (systemic symptoms)? @ -Default Side effects of treatment? @ -No Exacerbation, Progression, or Severe Exacerbation? exacerbation Poses a threat to life or bodily function? How? (Chest pain, USA, GA, pneumonia, PE, COPD, DKA, ARF, appy, cholecystitis, CVA, Diverticulitis, Homicidal, Suicidal, threat to staff... and all critical care pts) @Yes - Lab Data Result diagrams: 05/16/24 03:25 05/16/24 03:25 Lab Results 05/16/24 05/16/24 05/16/24 Range/Units 03:25 03:25 03:25 WBC 11.9 H (3.8-10.6) k/uL RBC 4.35 (4.30-5.90) m/uL Hgb 14.6 (13.0-17.5) gm/dL Hct 43.2 (39.0-53.0) % MCV 99.4 (80.0-100.0) fL MCH 33.6 (25.0-35.0) pg MCHC 33.8 (31.0-37.0) g/dL RDW 13.5 (11.5-15.5) % Plt Count 171 (150-450) k/uL MPV 8.4 Neutrophils % 80 % Lymphocytes % 13 % Monocytes % 5 % Eosinophils % 0 % Basophils % 0 % Neutrophils # 9.6 H (1.3-7.7) k/uL Lymphocytes # 1.5 (1.0-4.8) k/uL Monocytes # 0.6 (0-1.0) k/uL Eosinophils # 0.0 (0-0.7) k/uL Basophils # 0.0 (0-0.2) k/uL PT 14.8 H (10.0-12.5) sec INR 1.4 H (<1.2) APTT 30.0 (22.0-30.0) sec Sodium 132 L (137-145) mmol/L Potassium 4.3 (3.5-5.1) mmol/L Chloride 102 (98-107) mmol/L Carbon Dioxide 23 (22-30) mmol/L Anion Gap 7 mmol/L BUN 17 (9-20) mg/dL Creatinine 0.75 (0.66-1.25) mg/dL Est GFR (CKD-EPI)AfAm >90 (>60 ml/min/1.73 sqM) Est GFR (CKD-EPI)NonAf 89 (>60 ml/min/1.73 sqM) Glucose 123 H (74-99) mg/dL Calcium 8.7 (8.4-10.2) mg/dL Magnesium 1.8 (1.6-2.3) mg/dL Total Bilirubin 1.4 H (0.2-1.3) mg/dL AST 94 H (17-59) U/L ALT 45 (4-49) U/L Alkaline Phosphatase 122 (38-126) U/L Troponin I (0.000-0.034) ng/mL NT-Pro-B Natriuret Pep 2840 pg/mL Total Protein 6.4 (6.3-8.2) g/dL Albumin 4.1 (3.5-5.0) g/dL Procalcitonin (0.02-0.50) ng/mL 05/16/24 05/16/24 Range/Units 03:25 03:25 WBC (3.8-10.6) k/uL RBC (4.30-5.90) m/uL Hgb (13.0-17.5) gm/dL Hct (39.0-53.0) % MCV (80.0-100.0) fL MCH (25.0-35.0) pg MCHC (31.0-37.0) g/dL RDW (11.5-15.5) % Plt Count (150-450) k/uL MPV Neutrophils % % Lymphocytes % % Monocytes % % Eosinophils % % Basophils % % Neutrophils # (1.3-7.7) k/uL Lymphocytes # (1.0-4.8) k/uL Monocytes # (0-1.0) k/uL Eosinophils # (0-0.7) k/uL Basophils # (0-0.2) k/uL PT (10.0-12.5) sec INR (<1.2) APTT (22.0-30.0) sec Sodium (137-145) mmol/L Potassium (3.5-5.1) mmol/L Chloride (98-107) mmol/L Carbon Dioxide (22-30) mmol/L Anion Gap mmol/L BUN (9-20) mg/dL Creatinine (0.66-1.25) mg/dL Est GFR (CKD-EPI)AfAm (>60 ml/min/1.73 sqM) Est GFR (CKD-EPI)NonAf (>60 ml/min/1.73 sqM) Glucose (74-99) mg/dL Calcium (8.4-10.2) mg/dL Magnesium (1.6-2.3) mg/dL Total Bilirubin (0.2-1.3) mg/dL AST (17-59) U/L ALT (4-49) U/L Alkaline Phosphatase (38-126) U/L Troponin I <0.012 (0.000-0.034) ng/mL NT-Pro-B Natriuret Pep pg/mL Total Protein (6.3-8.2) g/dL Albumin (3.5-5.0) g/dL Procalcitonin 0.09 (0.02-0.50) ng/mL Disposition Clinical Impression: COPD exacerbation, Atrial fibrillation with rapid ventricular response Disposition: ADMITTED IP TO THIS HOSP Condition: Stable
[2024-05-16 04:17] LABS: ALT 45 U/L (4-49); AST 94 U/L (17-59); African American GFR (CKD) >90 (>60 ml/min/1.73 sqM); Albumin 4.1 g/dL (3.5-5.0); Alkaline Phosphatase 122 U/L (38-126); Anion Gap 7 mmol/L; Blood Urea Nitrogen 17 mg/dL (9-20); Calcium 8.7 mg/dL (8.4-10.2); Carbon Dioxide 23 mmol/L (22-30); Chloride 102 mmol/L (98-107); Glucose 123 mg/dL (74-99); Magnesium 1.8 mg/dL (1.6-2.3); Non-African American GFR(CKD) 89 (>60 ml/min/1.73 sqM); Potassium 4.3 mmol/L (3.5-5.1); Sodium 132 mmol/L (137-145); Total Bilirubin 1.4 mg/dL (0.2-1.3); Total Protein 6.4 g/dL (6.3-8.2)
[2024-05-16 04:18] LABS: Basophils % (A) 0 %; Eosinophils % (A) 0 %; HCT 43.2 % (39.0-53.0); HGB 14.6 gm/dL (13.0-17.5); Lymphocytes # (A) 1.5 k/uL (1.0-4.8); Lymphocytes % (A) 13 %; MCH 33.6 pg (25.0-35.0); MCHC 33.8 g/dL (31.0-37.0); MCV 99.4 fL (80.0-100.0); Mean Platelet Volume 8.4; Monocytes # (A) 0.6 k/uL (0-1.0); Monocytes % (A) 5 %; Neutrophils # (A) 9.6 k/uL (1.3-7.7); Neutrophils % (A) 80 %; Platelet Count 171 k/uL (150-450); RBC 4.35 m/uL (4.30-5.90); RDW 13.5 % (11.5-15.5); WBC 11.9 k/uL (3.8-10.6)
[2024-05-16] MEDS: NICOTINE 7MG/24HR PATCH TRANSDERM STA (04:19)
[2024-05-16 04:22] LABS: INR 1.4 (<1.2); Prothrombin Time 14.8 sec (10.0-12.5)
[2024-05-16 04:26] LABS: NT-Pro-B-Type Natriuretic Pept 2840 pg/mL
--- NOTE | 2024-05-16 04:27 | XR ---
EXAMINATION TYPE: XR chest 2V DATE OF EXAM: 05/16/2024 4:20 AM COMPARISON: None. CLINICAL INDICATION: Male, 78 years old with history of difficulty breathing, short of breath TECHNIQUE: XR chest 2V view(s) obtained. FINDINGS: The heart size is normal. The pulmonary vasculature is normal. Impression a some scarring at the right apex, present previously. Hyperinflation finding the diaphrag ms compatible with COPD. No suspicious acute pulmonary process is radiographically apparent.. IMPRESSION: 1. No acute pulmonary process. 2. COPD 3. Chronic appearing scarring right apex [facility], , 05/16/2024 4:25 AM
[2024-05-16] MEDS: AZITHROMYCIN 500 MG in SODIUM CHLORIDE 0.9% 250 ML IVPB STA (04:29)
[2024-05-16] MEDS: SODIUM CHLORIDE 0.9% 1,000 ML IV STA (04:29)
[2024-05-16] MEDS ORDERED: NALOXONE 0.4 MG/ML 1 ML VIAL IVP PRN (06:58)
[2024-05-16] MEDS ORDERED: ACETAMINOPHEN TAB 325 MG TAB PO PRN (06:58)
[2024-05-16] MEDS ORDERED: BENZONATATE 100 MG CAP PO PRN (06:58)
[2024-05-16] MEDS ORDERED: MELATONIN 3 MG TABLET PO PRN (06:58)
[2024-05-16] MEDS: guaiFENesin 600 MG TABLET.ER PO SCH (08:40)
[2024-05-16] MEDS: predniSONE 10 MG TAB PO SCH (08:40)
[2024-05-16] MEDS: DOCUSATE 100 MG CAP PO SCH (08:40)
[2024-05-16] MEDS ORDERED: AZITHROMYCIN 500 MG TAB PO SCH (09:00)
[2024-05-16] MEDS: SYMBICORT 160-4.5 MCG INHALER INHALATION SCH (09:04)
[2024-05-16] MEDS: IPRATROPIUM-ALBUTEROL 3 ML NEB INHALATION PRN (09:04)
[2024-05-16] MEDS: SYMBICORT 80-4.5 MCG INHALER INHALATION SCH (09:20)
--- NOTE | 2024-05-16 09:34 | P.HPIM ---
History of Present Illness 38-year-old pleasant male came in with complaints of shortness of breath does have history of COPD does not have any history of congestive heart failure. Patient was wheezing on exam was started on systemic steroids inpatient treatmen t. Patient was also given his azithromycin and Rocephin there is no evidence of pneumonia on this chest x-ray. Patient BNP is elevated to 2800 clinically patient is not in CHF. Patient does have history of atrial fibrillation but denied any history of congestive heart failure patient is mildly hyponatremic as well. REVIEW OF SYSTEMS: All other systems are negative except those mentioned in the HPI PHYSICAL EXAMINATION: GENERAL: The patient is alert and oriented x3, not in any acute distress. Well developed, well nourished. HEENT: Pupils are round and equally reacting to light. EOMI. No scleral icterus. No conjunctival pallor. Normocephalic, atraumatic. No pharyngeal erythema. No thyromegaly. CARDIOVASCULAR: S1 and S2 present. No murmurs, rubs, or gallops. PULMONARY: Chest is clear to auscultation, no wheezing or crackles. ABDOMEN: Soft, nontender, nondistended, normoactive bowel sounds. No palpable organomegaly. MUSCULOSKELETAL: No joint swelling or deformity. EXTREMITIES: No cyanosis, clubbing, or pedal edema. NEUROLOGICAL: Gross neurological examination did not reveal any focal deficits. SKIN: No rashes. Assessment and plan Acute hypercapnic respiratory failure secondary to COPD exacerbation continue with systemic steroids inhalational treatments azithromycin will continue Rocephin will be discontinued -Paroxysmal atrial fibrillation presently sinus rhythm rate controlled continue Xarelto and rate control medications -Gastroesophageal flux disease -Hyperlipidemia -Hypertension -Mild hyponatremia will repeat labs tomorrow because of his elevated BNP, not ordering any IV fluids patient appears to be euvolemic at this time DVT prophylaxis: On Xarelto Past Medical History Past Medical History: COPD, GERD/Reflux, Hyperlipidemia, Hypertension, Osteoarthritis (OA) Additional Past Medical History / Comment(s): lung infection 15yrs ago that created a hole per pt. tx and resolved. abdominal discomfort r/t gallbladder History of Any Multi-Drug Resistant Organisms: None Reported Past Surgical History: Appendectomy, Bowel Resection Additional Past Surgical History / Comment(s): cataract, colonoscopy Additional Past Anesthesia/Blood Transfusion Reaction / Comment(s): very slow to wake up from colonoscopy Past Psychological History: No Psychological Hx Reported Smoking Status: Current every day smoker Past Alcohol Use History: None Reported Past Drug Use History: None Reported - Past Family History Mother Family Medical History: Cancer Additional Family Medical History / Comment(s): lung Brother(s) Family Medical History: Cancer Additional Family Medical History / Comment(s): Lung and brain cancer Medications and Allergies Home Medications Medication Instructions Recorded Confirmed Type Levocetirizine Dihydrochloride 5 mg PO HS 01/16/19 05/16/24 History Metoprolol Succinate [Toprol Xl] 100 mg PO HS 01/16/19 05/16/24 History Multivitamins, Thera [Multivitamin 1 tab PO HS 01/16/19 05/16/24 History (formulary)] Simvastatin [Zocor] 20 mg PO HS 01/16/19 05/16/24 History Albuterol Sulfate [Ventolin HFA] 2 puff INHALATION RT-QID PRN 10/02/23 05/16/24 History Azithromycin [Zithromax] 250 mg PO Q2D@0900 10/02/23 05/16/24 History Fluticasone/Umeclidin/Vilanter 1 puff INHALATION RT-DAILY 10/02/23 05/16/24 History [Trelegy Ellipta 200-62.5-25] Rivaroxaban [Xarelto] 15 mg PO HS 05/16/24 05/16/24 History guaiFENesin [Mucinex] 600 mg PO DAILY 05/16/24 05/16/24 History lisinopriL [Zestril] 2.5 mg PO HS 05/16/24 05/16/24 History Allergies Allergy/AdvReac Type Severity Reaction Status Date / Time codeine Allergy Nausea & Verified 05/16/24 08:29 Vomiting Physical Exam Vitals: Vital Signs Temp Pulse Resp BP Pulse Ox 05/16/24 09:18 122 H 05/16/24 09:07 116 H 05/16/24 08:45 108 H 18 107/86 96 05/16/24 06:00 110 H 18 115/83 96 05/16/24 04:34 123 H 18 117/76 93 L 05/16/24 04:15 120 H 05/16/24 04:05 115 H 18 127/82 98 05/16/24 04:04 118 H 05/16/24 03:48 117 H 05/16/24 03:13 98.7 F 156 H 20 100/89 95 Intake and Output 05/15/24 05/16/24 05/16/24 22:59 06:59 14:59 Other: Weight 67.585 kg Results CBC & Chem 7: 05/16/24 03:25 05/16/24 03:25 Labs: Abnormal Lab Results - Last 24 Hours (Table) 05/16/24 05/16/24 05/16/24 Range/Units 03:25 03:25 03:25 WBC 11.9 H (3.8-10.6) k/uL Neutrophils # 9.6 H (1.3-7.7) k/uL PT 14.8 H (10.0-12.5) sec INR 1.4 H (<1.2) Sodium 132 L (137-145) mmol/L Glucose 123 H (74-99) mg/dL Total Bilirubin 1.4 H (0.2-1.3) mg/dL AST 94 H (17-59) U/L
--- NOTE | 2024-05-16 12:05 | P.CNPUL ---
History of Present Illness Consult date: 05/16/24 Requesting physician: Bia Pineda Reason for consult: dyspnea, hypoxemia Chief complaint: Shortness of breath, palpitations History of present illness: This is a pleasant 78-year-old male patient with a known history of chronic and ongoing tobacco dependence, previous right apical lung pneumonia with residual scar, atrial fibrillation anticoagulated with Xarelto, chronic obstructive pul monary disease maintained on Trelegy and albuterol HFA, hypertension, hyperlipidemia. He presented here to the emergency room early this morning after he woke up feeling very short of breath. He did receive 125 mg of Solu- Medrol and 2 breathing treatments and was improving. He did have atrial fib rillation with a rapid ventricular response. Chest x-ray reveals no acute pulmonary process. Evidence of COPD. Chronic scarring of the right apex. White count 11.9. Hemoglobin 14.6. Platelets 171. INR 1.4. Sodium 132. Potassium 4.3. Bicarb 23. BUN 17. Creatinine 0.75. Glucose 123. AST 94. ALT 45. Troponin negative x 2. proBNP 2840. He is seen today in consultation in the emergency department. He is sitting up on the stretcher. Awake and alert in no acute distress. He is dyspneic with conversation. Dyspneic with minimal exertion. Maintaining O2 saturations in the 90s on room air. Review of Systems REVIEW OF SYSTEMS: CONSTITUTIONAL: Denies any recent significant weight loss or weight gain. EYES: Denies change in vision. EARS, NOSE, MOUTH, THROAT: Denies headaches, denies sore throat. CARDIOVASCULAR: Positive for palpitations no syncopal episodes. RESPIRATORY: Positive for shortness of breath, no cough, congestion or hemoptysis. GASTROINTESTINAL: Denies change in appetite, denies abdominal pain GENITOURINARY: Denies hematuria, denies infections. MUSKULOSKELETAL: Denies pain, denies swelling. INTEGUMENTARY: Denies rash, denies eczema. NEUROLOGICAL: Denies recent memory loss, no recent seizure activity. PSYCHIATRIC: Denies anxiety, denies depression. HEMATOLOGIC/LYMPHATIC: Denies anemia, denies enlarged lymph nodes. Past Medical History Past Medical History: COPD, GERD/Reflux, Hyperlipidemia, Hypertension, Osteoarthritis (OA) Additional Past Medical History / Comment(s): lung infection 15yrs ago that created a hole per pt. tx and resolved. abdominal discomfort r/t gallbladder History of Any Multi-Drug Resistant Organisms: None Reported Past Surgical History: Appendectomy, Bowel Resection Additional Past Surgical History / Comment(s): cataract, colonoscopy Additional Past Anesthesia/Blood Transfusion Reaction / Comment(s): very slow to wake up from colonoscopy Past Psychological History: No Psychological Hx Reported Smoking Status: Current every day smoker Past Alcohol Use History: None Reported Past Drug Use History: None Reported - Past Family History Mother Family Medical History: Cancer Additional Family Medical History / Comment(s): lung Brother(s) Family Medical History: Cancer Additional Family Medical History / Comment(s): Lung and brain cancer Medications and Allergies Home Medications Medication Instructions Recorded Confirmed Type Levocetirizine Dihydrochloride 5 mg PO HS 01/16/19 05/16/24 History Metoprolol Succinate [Toprol Xl] 100 mg PO HS 01/16/19 05/16/24 History Multivitamins, Thera [Multivitamin 1 tab PO HS 01/16/19 05/16/24 History (formulary)] Simvastatin [Zocor] 20 mg PO HS 01/16/19 05/16/24 History Albuterol Sulfate [Ventolin HFA] 2 puff INHALATION RT-QID PRN 10/02/23 05/16/24 History Azithromycin [Zithromax] 250 mg PO Q2D@0900 10/02/23 05/16/24 History Fluticasone/Umeclidin/Vilanter 1 puff INHALATION RT-DAILY 10/02/23 05/16/24 History [Trelegy Ellipta 200-62.5-25] Rivaroxaban [Xarelto] 15 mg PO HS 05/16/24 05/16/24 History guaiFENesin [Mucinex] 600 mg PO DAILY 05/16/24 05/16/24 History lisinopriL [Zestril] 2.5 mg PO HS 05/16/24 05/16/24 History Allergies Allergy/AdvReac Type Severity Reaction Status Date / Time codeine Allergy Nausea & Verified 05/16/24 08:29 Vomiting Physical Exam Vitals: Vital Signs Temp Pulse Resp BP Pulse Ox 05/16/24 11:44 117 H 20 117/89 97 05/16/24 09:18 122 H 05/16/24 09:07 116 H 05/16/24 08:45 108 H 18 107/86 96 05/16/24 06:00 110 H 18 115/83 96 05/16/24 04:34 123 H 18 117/76 93 L 05/16/24 04:15 120 H 05/16/24 04:05 115 H 18 127/82 98 05/16/24 04:04 118 H 05/16/24 03:48 117 H 05/16/24 03:13 98.7 F 156 H 20 100/89 95 Intake and Output 05/15/24 05/16/24 05/16/24 22:59 06:59 14:59 Other: Weight 67.585 kg GENERAL EXAM: Alert, pleasant 78-year-old male, in mild respiratory distress, on room air. HEAD: Normocephalic. EYES: Normal reaction of pupils, equal size. NOSE: Clear with pink turbinates. THROAT: No erythema or exudates. NECK: No masses, no JVD. CHEST: No chest wall deformity. LUNGS: Equal air entry with mild scattered rhonchi. CVS: S1 and S2 normal with no audible murmur, irregular rhythm. ABDOMEN: No hepatosplenomegaly, normal bowel sounds, no guarding or rigidity. SPINE: No scoliosis or deformity SKIN: No rashes CENTRAL NERVOUS SYSTEM: No focal deficits, tone is normal in all 4 extremities. EXTREMITIES: There is 1+ peripheral edema. No clubbing, no cyanosis. Peripheral pulses are intact. Results - Laboratory Findings CBC and BMP: 05/16/24 03:25 05/16/24 03:25 PT/INR, D-dimer PT 14.8 sec (10.0-12.5) H 05/16/24 03:25 INR 1.4 (<1.2) H 05/16/24 03:25 Abnormal lab findings: Abnormal Labs 05/16/24 05/16/24 05/16/24 03:25 03:25 03:25 WBC 11.9 H Neutrophils # 9.6 H PT 14.8 H INR 1.4 H Sodium 132 L Glucose 123 H Total Bilirubin 1.4 H AST 94 H - Diagnostic Findings Chest x-ray: image reviewed Assessment and Plan Assessment: Acute exacerbation of chronic obstructive pulmonary disease Atrial fibrillation with a rapid ventricular response History of atrial fibrillation, anticoagulated with Xarelto Chronic and ongoing tobacco dependence Hypertension Hyperlipidemia Plan: The patient was seen and evaluated Chest x-ray, labs and medications reviewed Initiate DuoNeb and elations, Symbicort Initiate a prednisone taper NicoDerm patch in place Educated regarding the importance of smoking cessation Anticoagulated with Xarelto Continue azithromycin for now Check a procalcitonin We will continue to follow and make further recommendations based on his clinical status I have personally seen and examined the patient, performed the documentation and the assessment and plan as written. Number of minutes spent on the visit: 20 Dictation was produced using [employer] dictation software. Please excuse any grammatical, word or spelling errors.
[2024-05-16] MEDS: IPRATROPIUM 0.5 MG/2.5 ML NEBU INHALATION SCH (12:44)
[2024-05-16] MEDS: METOPROLOL SUCCINATE (ER) 50 MG TAB.ER.24H PO SCH (16:38)
[2024-05-16 17:07] LABS: Glucose,Whole Blood 219 mg/dL (70-110)
[2024-05-16] MEDS: DILTIAZEM 125 MG in SODIUM CHLORIDE 0.9% 100 ML IV SCH (17:44)
[2024-05-16] MEDS ORDERED: DILTIAZEM DRIP BOLUS FROM BAG 1 MG SOLN IV ONE (17:45)
[2024-05-16] MEDS: DILTIAZEM DRIP BOLUS FROM BAG 1 MG SOLN IV ONE (17:46)
--- NOTE | 2024-05-16 17:49 | XR ---
EXAMINATION TYPE: XR chest 1V DATE OF EXAM: 05/16/2024 5:36 PM COMPARISON: Same day chest radiograph. CLINICAL INDICATION: Male, 78 years old with history of sob; H TECHNIQUE: XR chest 1V Frontal view of the chest. FINDINGS: Stable cardiac silhouette. Biapical scarring again noted, right greater than left. Hyperinflated lungs bilaterally with coarsening of the interstitial markings. No sizable pleural effusion. No acute focal consolidation. No pneumothorax. No acute osseous abnormality. IMPRESSION: No significant interval change from prior same day study. [facility], , 05/16/2024 5:46 PM
[2024-05-16] MEDS: RIVAROXABAN 15 MG TAB PO SCH (20:32)
[2024-05-16] MEDS: MULTIVITAMINS, THERA 1 EACH TAB PO SCH (20:33)
[2024-05-16] MEDS: ASPIRIN 81 MG PO SCH (20:33)
[2024-05-16] MEDS: ATORVASTATIN 10 MG TAB PO SCH (20:33)
[2024-05-16] MEDS: LORATADINE 10 MG TAB PO SCH (20:33)
[2024-05-16] MEDS ORDERED: METOPROLOL SUCCINATE (ER) 100 MG TAB.ER.24H PO SCH (21:00)
[2024-05-17 04:43] LABS: HCT 38.8 % (39.0-53.0); HGB 12.6 gm/dL (13.0-17.5); MCH 32.1 pg (25.0-35.0); MCHC 32.3 g/dL (31.0-37.0); MCV 99.3 fL (80.0-100.0); Mean Platelet Volume 8.6; Platelet Count 146 k/uL (150-450); RBC 3.91 m/uL (4.30-5.90); RDW 13.4 % (11.5-15.5); WBC 14.3 k/uL (3.8-10.6)
[2024-05-17 04:55] LABS: African American GFR (CKD) >90 (>60 ml/min/1.73 sqM); Anion Gap 4 mmol/L; Blood Urea Nitrogen 19 mg/dL (9-20); Calcium 8.6 mg/dL (8.4-10.2); Carbon Dioxide 30 mmol/L (22-30); Chloride 100 mmol/L (98-107); Glucose 111 mg/dL (74-99); Non-African American GFR(CKD) >90 (>60 ml/min/1.73 sqM); Potassium 4.2 mmol/L (3.5-5.1); Sodium 134 mmol/L (137-145)
--- NOTE | 2024-05-17 07:47 | P.CRDCN ---
History of Present Illness Consult date: 05/17/24 History of present illness: The patient is a 78-year-old gentleman who is known to our service from before with a past medical history significant for CAD with known intermediate disease involving the LAD based on heart catheterization in 2023 as well as nonischemic cardiomyopathy and also persistent atrial fibrillation as well as smoking and COPD and history of "aortic aneurysm" with unknown details the patient sees a vascular surgeon for that on regular basis presented to the hospital complaining of shortness of breath but he was admitted with a progressive dyspnea associated with cough and congestions but no symptoms of any chest pain or chest discomfort or dizziness or lightheadedness or any feeling of heart racing or fluttering or presyncope or syncope or edema in the lower extremities. No change in the weight as well. He was compliant with all of his medications but he was diagnosed with COPD. Unfortunately the patient continues to smoke. He was started on antibiotic along with steroids. Currently he is feeling slightly better. We consulted to see the patient because of atrial fibrillation with RVR and he is known to have persistent atrial fibrillation. Currently he is on Cardizem IV which I am going to stop giving the cardiomyopathy and start the patient back on oral AV maribell meliza agents using beta-meliza with the home dose and monitor the heart rate and adjust the medications if we need to. He is on oral anticoagulation and that resumed. The physical examination is remarkable for irregular rhythm with distant heart sounds and bilateral expiratory wheezing and mild bilateral lower extremities edema noted. Assessment Atrial fibrillation with RVR in a patient with known persistent atrial fibrillation Known nonischemic cardiomyopathy CAD known to be nonobstructive COPD Smoking Multiple comorbid conditions Plan DC Cardizem IV and start the patient back on beta-meliza Continue oral anticoagulation Obtain an echo to assess the current status of the ejection fraction Follow-up with the patient Past Medical History Past Medical History: COPD, GERD/Reflux, Hyperlipidemia, Hypertension, Osteoarthritis (OA) Additional Past Medical History / Comment(s): lung infection 15yrs ago that created a hole per pt. tx and resolved. abdominal discomfort r/t gallbladder History of Any Multi-Drug Resistant Organisms: None Reported Past Surgical History: Appendectomy, Bowel Resection, Cholecystectomy Additional Past Surgical History / Comment(s): cataract, colonoscopy Past Anesthesia/Blood Transfusion Reactions: No Reported Reaction Additional Past Anesthesia/Blood Transfusion Reaction / Comment(s): very slow to wake up from colonoscopy Past Psychological History: No Psychological Hx Reported Smoking Status: Current every day smoker Past Alcohol Use History: None Reported Additional Past Alcohol Use History / Comment(s): smoked for 60 yrs. up to 1 1/2 ppd. now only 4-5 cigarettes a day Past Drug Use History: None Reported - Past Family History Mother Family Medical History: Cancer Additional Family Medical History / Comment(s): lung Brother(s) Family Medical History: Cancer Additional Family Medical History / Comment(s): Lung and brain cancer Medications and Allergies Home Medications Medication Instructions Recorded Confirmed Type Levocetirizine Dihydrochloride 5 mg PO HS 01/16/19 05/16/24 History Metoprolol Succinate [Toprol Xl] 100 mg PO HS 01/16/19 05/16/24 History Multivitamins, Thera [Multivitamin 1 tab PO HS 01/16/19 05/16/24 History (formulary)] Simvastatin [Zocor] 20 mg PO HS 01/16/19 05/16/24 History Albuterol Sulfate [Ventolin HFA] 2 puff INHALATION RT-QID PRN 10/02/23 05/16/24 History Azithromycin [Zithromax] 250 mg PO Q2D@0900 10/02/23 05/16/24 History Fluticasone/Umeclidin/Vilanter 1 puff INHALATION RT-DAILY 10/02/23 05/16/24 History [Trelegy Ellipta 200-62.5-25] Rivaroxaban [Xarelto] 15 mg PO HS 05/16/24 05/16/24 History guaiFENesin [Mucinex] 600 mg PO DAILY 05/16/24 05/16/24 History lisinopriL [Zestril] 2.5 mg PO HS 05/16/24 05/16/24 History Allergies Allergy/AdvReac Type Severity Reaction Status Date / Time codeine Allergy Nausea & Verified 05/16/24 08:29 Vomiting Physical Exam Vitals: Vital Signs Temp Pulse Pulse Resp BP BP Pulse Ox 05/17/24 04:00 91 24 120/83 93 L 05/17/24 02:00 83 120 H 21 117/80 94 L 05/17/24 00:00 89 23 121/78 95 05/16/24 22:00 94 25 H 136/97 94 L 05/16/24 21:00 98 F 99 18 136/97 93 L 05/16/24 20:01 112 H 05/16/24 20:00 120 H 22 05/16/24 19:46 99 05/16/24 19:00 101 H 20 122/89 98 05/16/24 18:30 128 H 21 97 05/16/24 18:27 97.6 F 115 H 17 122/98 97 05/16/24 18:10 117 H 141/84 05/16/24 18:00 126 H 141/84 05/16/24 17:52 136 H 136/82 05/16/24 17:47 160 H 135/95 05/16/24 16:23 96 05/16/24 16:14 90 05/16/24 14:30 97.6 F 64 16 114/75 96 05/16/24 13:38 125 H 18 141/107 97 05/16/24 12:55 128 H 05/16/24 12:48 93 18 126/87 98 05/16/24 12:45 130 H 05/16/24 11:44 117 H 20 117/89 97 05/16/24 09:18 122 H 05/16/24 09:07 116 H 05/16/24 08:45 108 H 18 107/86 96 Intake and Output 05/16/24 05/17/24 05/17/24 22:59 06:59 14:59 Intake Total 0 400 Balance 0 400 Intake: Oral 0 400 Other: Voiding Method Toilet Toilet Weight 67.585 kg Results 05/17/24 04:12 05/17/24 04:12 CBC 05/17/24 Range/Units 04:12 WBC 14.3 H (3.8-10.6) k/uL RBC 3.91 L (4.30-5.90) m/uL Hgb 12.6 L (13.0-17.5) gm/dL Hct 38.8 L (39.0-53.0) % Plt Count 146 L (150-450) k/uL Comprehensive Metabolic Panel 05/17/24 Range/Units 04:12 Sodium 134 L (137-145) mmol/L Potassium 4.2 (3.5-5.1) mmol/L Chloride 100 (98-107) mmol/L Carbon Dioxide 30 (22-30) mmol/L BUN 19 (9-20) mg/dL Creatinine 0.61 L (0.66-1.25) mg/dL Glucose 111 H (74-99) mg/dL Calcium 8.6 (8.4-10.2) mg/dL Current Medications Generic Name Dose Route Start Last Admin Trade Name Freq PRN Reason Stop Dose Admin Acetaminophen 650 mg 05/16/24 06:58 Acetaminophen Tab 325 Mg Tab PO Q4HR PRN Mild Pain or Fever > 100.5 Albuterol/Ipratropium 3 ml 05/16/24 06:58 05/16/24 19:46 Ipratropium-Albuterol 3 Ml Neb INHALATION 3 ml RT-Q2H PRN Administration Shortness Of Breath Or Wheezing Aspirin 81 mg 05/16/24 21:00 05/16/24 20:33 Aspirin 81 Mg PO Not Given HS PENNY Atorvastatin Calcium 10 mg 05/16/24 21:00 05/16/24 20:33 Atorvastatin 10 Mg Tab PO 10 mg HS PENNY Administration Azithromycin 500 mg 05/17/24 09:00 Azithromycin 500 Mg Tab PO 05/19/24 09:01 DAILY PENNY Protocol Benzonatate 100 mg 05/16/24 06:58 Benzonatate 100 Mg Cap PO TID PRN Cough Budesonide/Formoterol Fumarate 2 puff 05/16/24 20:00 05/16/24 19:46 Symbicort 160-4.5 Mcg Inhaler INHALATION 2 puff RT-BID PENNY Administration Docusate Sodium 100 mg 05/16/24 09:00 05/16/24 20:33 Docusate 100 Mg Cap PO Not Given BID PENNY Guaifenesin 600 mg 05/16/24 09:00 05/16/24 20:33 Guaifenesin 600 Mg Tablet.Er PO 600 mg Q12HR PENNY Administration Guaifenesin 600 mg 05/17/24 09:00 Guaifenesin 600 Mg Tablet.Er PO DAILY PENNY Diltiazem HCl 125 mg/ Sodium 125 mls @ 5 mls/hr 05/16/24 17:45 05/16/24 17:44 Chloride IV 5 mg/hr .Q24H PENNY 5 mls/hr Administration 5 MG/HR Ipratropium [place] 0.5 mg 05/16/24 12:00 05/16/24 19:46 Ipratropium 0.5 Mg/2.5 Ml Nebu INHALATION Not Given RT-QID PENNY Loratadine 10 mg 05/16/24 21:00 05/16/24 20:33 Loratadine 10 Mg Tab PO 10 mg HS PENNY Administration Melatonin 3 mg 05/16/24 06:58 Melatonin 3 Mg Tablet PO HS PRN Insomnia Metoprolol Succinate 50 mg 05/16/24 17:00 05/16/24 16:38 Metoprolol Succinate (Er) 50 Mg Tab.Er.24h PO 50 mg BID PENNY Administration Multivitamins 1 each 05/16/24 21:00 05/16/24 20:33 Multivitamins, Thera 1 Each Tab PO 1 each HS PENNY Administration Naloxone HCl 0.2 mg 05/16/24 06:58 Naloxone 0.4 Mg/Ml 1 Ml Vial IVP Q2M PRN Opioid Reversal Nicotine 1 patch 05/17/24 09:00 Nicotine 7mg/24hr Patch TRANSDERM DAILY PENNY Prednisone 30 mg 05/16/24 09:00 05/16/24 08:40 Prednisone 10 Mg Tab PO 30 mg DAILY PENNY Administration Rivaroxaban 15 mg 05/16/24 21:00 05/16/24 20:32 Rivaroxaban 15 Mg Tab PO 15 mg HS PENNY Administration Protocol Intake and Output 05/16/24 05/17/24 05/17/24 22:59 06:59 14:59 Intake Total 0 400 Balance 0 400 Intake: Oral 0 400 Other: Voiding Method Toilet Toilet Weight 67.585 kg 05/17/24 04:12 05/17/24 04:12
[2024-05-17] MEDS ORDERED: guaiFENesin 600 MG TABLET.ER PO SCH (09:00)
[2024-05-17] MEDS: guaiFENesin-DM 100-10MG/5ML 10 ML CUP PO SCH (10:09)
[2024-05-17] MEDS: methylPREDNISolone SOD SUCCI 125 MG/2 ML VIAL IV SCH (10:10)
[2024-05-17] MEDS: AZITHROMYCIN 500 MG TAB PO SCH (10:36)
[2024-05-17] MEDS: NICOTINE 7MG/24HR PATCH TRANSDERM SCH (10:36)
[2024-05-17 12:28] LABS: Glucose,Whole Blood 140 mg/dL (70-110)
--- NOTE | 2024-05-17 12:50 | P.PN ---
Subjective Progress Note Date: 05/17/24 This is a pleasant 78-year-old male patient with a known history of chronic and ongoing tobacco dependence, previous right apical lung pneumonia with residual scar, atrial fibrillation anticoagulated with Xarelto, chronic obstructive pulmonary disease maintained on Trelegy and albuterol HFA, hypertension, hyperlipidemia. He presented here to the emergency room early this morning after he woke up feeling very short of breath. He did receive 125 mg of Solu- Medrol and 2 breathing treatments and was improving. He did have atrial fibrillation with a rapid ventricular response. Chest x-ray reveals no acute pulmonary process. Evidence of COPD. Chronic scarring of the right apex. White count 11.9. Hemoglobin 14.6. Platelets 171. INR 1.4. Sodium 132. Potassium 4.3. Bicarb 23. BUN 17. Creatinine 0.75. Glucose 123. AST 94. ALT 45. Troponin negative x 2. proBNP 2840. He is seen today in consultation in the emergency department. He is sitting up on the stretcher. Awake and alert in no acute distress. He is dyspneic with conversation. Dyspneic with minimal exertion. Maintaining O2 saturations in the 90s on room air. On 05/17/2024, the patient is being seen for a follow-up in the intensive care unit. The patient is known to have advanced COPD and he was hospitalized for an acute COPD exacerbation in addition to atrial fibrillation with rapid ve ntricular response. In terms of his COPD, the patient remains on Bronchodilators and the patient is on DuoNeb nebulized treatments [id number] in addition to IV Solu-Medrol 60 mg every 6 hours and Symbicort maintenance. Noted the patient has been utilizing Trelegy Ellipta on outpatient basis. He is also covered with empiric antibiotics and the patient is currently is on Zithromax 500 mg p.o. daily. He remains on Cardizem drip for A-fib RVR and the patient is currently on 5 mg an hour and his heart rate is under better control. He was also started on metoprolol 50 mg p.o. twice a day and the Cardizem drip will be gradually weaned off. He remains on anticoagulation with Xarelto. He is currently on room air oxygen with a pulse ox of 95%. Remains bronchospastic and wheezy. The white cell count of 14.3 with a heme of 4.6 and a platelet count of 146. BUN is 19 with a creatinine of 0.6 and a sodium levels at 134 with a potassium level of 4.2. Procalcitonin level is at 0.09. Troponin x 2 has been negative and proBNP level is 2840. Chest x-ray from yesterday was consistent with COPD with some hyperinflation. No other significant abilities. No airspace disease. Objective - Vital Signs Vital signs: Vital Signs Temp 98 F 05/16/24 21:00 Pulse 91 05/17/24 04:00 Resp 24 05/17/24 04:00 BP 120/83 05/17/24 04:00 Pulse Ox 93 L 05/17/24 04:00 FiO2 Intake & Output 05/16/24 05/17/24 05/17/24 18:59 06:59 18:59 Intake Total 0 400 Balance 0 400 Weight 67.585 kg Intake: Oral 0 400 Other: Voiding Method Toilet - Exam GENERAL EXAM: Alert, pleasant 78-year-old male, in mild respiratory distress, on room air. HEAD: Normocephalic. EYES: Normal reaction of pupils, equal size. NOSE: Clear with pink turbinates. THROAT: No erythema or exudates. NECK: No masses, no JVD. CHEST: No chest wall deformity. LUNGS: Equal air entry with mild scattered rhonchi. CVS: S1 and S2 normal with no audible murmur, irregular rhythm. ABDOMEN: No hepatosplenomegaly, normal bowel sounds, no guarding or rigidity. SPINE: No scoliosis or deformity SKIN: No rashes CENTRAL NERVOUS SYSTEM: No focal deficits, tone is normal in all 4 extremities. EXTREMITIES: There is 1+ peripheral edema. No clubbing, no cyanosis. Peripheral pulses are intact. - Labs CBC & Chem 7: 05/17/24 04:12 05/17/24 04:12 Labs: Abnormal Lab Results - Last 24 Hours (Table) 05/16/24 05/17/24 05/17/24 Range/Units 17:05 04:12 04:12 WBC 14.3 H (3.8-10.6) k/uL RBC 3.91 L (4.30-5.90) m/uL Hgb 12.6 L (13.0-17.5) gm/dL Hct 38.8 L (39.0-53.0) % Plt Count 146 L (150-450) k/uL Sodium 134 L (137-145) mmol/L Creatinine 0.61 L (0.66-1.25) mg/dL Glucose 111 H (74-99) mg/dL POC Glucose (mg/dL) 219 H (70-110) mg/dL Assessment and Plan Plan: Acute exacerbation of chronic obstructive pulmonary disease, still bronchospastic and wheezy and slightly improved compared to yesterday Severe COPD and patient is known to have advanced COPD with an FEV1 of 0.94 L which is only 28% of predicted. 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 Maintained on Trelegy Ellipta on an outpatient basis and also maintained on Zithromax 3 times a week at a dose of 250 mg Chronic smoker Atrial fibrillation with a rapid ventricular response, improved, currently on a Cardizem drip at 5 mg an hour History of atrial fibrillation, anticoagulated with Xarelto Chronic and ongoing tobacco dependence Hypertension Hyperlipidemia Chronic biapical scarring and recent PET/CT on 04/22/2024 showed FDG activity in the right upper lobe scar with calcification which is similar in morphology to the earlier scan which was done on 12/29/2023 and this is favored to be infectious/inflammatory in nature. Plan: Continue DuoNeb nebulized treatments [id number] IV Solu-Medrol 60 mg every 6 hours Continue empiric antibiotic coverage with Zithromax 500 mg p.o. daily Procalcitonin level is not elevated Cardizem drip at 5 mg an hour Started the patient on metoprolol 50 mg p.o. twice a day Increase mobility as tolerated Allow the patient to utilize Trelegy Ellipta from home. For now, the patient is covered with Symbicort Continue anticoagulation with Xarelto Patient can be transferred out of the intensive care unit today.
[2024-05-17] MEDS: METOPROLOL SUCCINATE (ER) 50 MG TAB.ER.24H PO STA (16:22)
[2024-05-17 17:06] LABS: Glucose,Whole Blood 148 mg/dL (70-110)
--- NOTE | 2024-05-17 17:35 | CA ---
Transthoracic Echo Report Name: Chad Covarrubias Age: 78 Gender: M : 1945 Exam Date: 05/17/2024 10:41 Exam Location: [place] [facility] Ht (in): 72 Wt (lb): 149 Ordering Physician: Marito Murdock MD ([id number]) Attending/Referring Phys: Vest Baster Yolis Musa RDCS Procedure CPT: Indications: a. fib Cardiac Hx: Technical Quality: Fair Contrast 1: Definity Total Dose (mL): 1 Contrast 2: Total Dose (mL): MEASUREMENTS (Male / Female) Normal Values 2D ECHO LV Diastolic Diameter PLAX 4.9 cm 4.2 - 5.9 / 3.9 - 5.3 cm LV Systolic Diameter PLAX 4.2 cm IVS Diastolic Thickness 0.9 cm 0.6 - 1.0 / 0.6 - 0.9 cm LVPW Diastolic Thickness 1.0 cm 0.6 - 1.0 / 0.6 - 0.9 cm LV Relative Wall Thickness 0.4 LVOT Diameter 1.9 cm LV Diastolic Volume MOD BP 101.7 cm??? 67 - 155 / 56 - 104 cm??? LV Systolic Volume MOD BP 63.6 cm??? 22 - 58 / 19 - 49 cm??? LV Ejection Fraction MOD BP 37.5 % >= 55 % LV Cardiac Index MOD BP 2334.1 cm???/min???m??? LV Diastolic Volume MOD 4C 101.6 cm??? LV Systolic Volume MOD 4C 62.4 cm??? LV Ejection Fraction MOD 4C 38.5 % LV Cardiac Index MOD 4C 2400.1 cm???/min???m??? LV Diastolic Length 4C 8.1 cm LV Systolic Length 4C 7.3 cm LV Diastolic Volume MOD 2C 94.8 cm??? LV Systolic Volume MOD 2C 64.0 cm??? LV Ejection Fraction MOD 2C 32.5 % LV Cardiac Index MOD 2C 1885.0 cm???/min???m??? LV Diastolic Length 2C 7.5 cm LV Systolic Length 2C 7.4 cm LA Volume 47.6 cm??? 18 - 58 / 22 - 52 cm??? LA Volume Index 25.8 cm???/m??? 16 - 28 cm???/m??? M-MODE LV Diastolic Diameter MM 5.0 cm 4.2 - 5.9 / 3.9 - 5.3 cm LV Systolic Diameter MM 4.3 cm LV Cardiac Index MM Teich 2178.3 cm???/min???m??? IVS Diastolic Thickness MM 1.1 cm 0.6 - 1.0 / 0.6 - 0.9 cm LVPW Diastolic Thickness MM 1.6 cm 0.6 - 1.0 / 0.6 - 0.9 cm LV Relative Wall Thickness MM 0.5 0.24 - 0.42 / 0.22 - 0.42 LV Mass Index MM 147.2 g/m??? 49 - 115 / 43 - 95 g/m??? DOPPLER AV Peak Velocity 72.1 cm/s AV Peak Gradient 2.1 mmHg AV Mean Velocity 51.3 cm/s AV Mean Gradient 1.2 mmHg AV Velocity Time Integral 11.7 cm LVOT Peak Velocity 67.3 cm/s LVOT Peak Gradient 1.8 mmHg LVOT Velocity Time Integral 10.5 cm LVOT Stroke Volume 30.6 cm??? LVOT Stroke Volume Index 16.3 ml/m??? LVOT Cardiac Index 1873.1 cm???/min???m??? AV Area Cont Eq vti 2.6 cm??? AV Area Cont Eq pk 2.7 cm??? PV Peak Velocity 54.2 cm/s PV Peak Gradient 1.2 mmHg FINDINGS Left Ventricle Left ventricular ejection fraction is estimated at 30-35 % with beat to beat variability. Moderately increased left ventricular mass. Mildly increased septal wall thickness. Moderately increased posterior wall thickness. Severely decreased fractional shortening. Severely decreased midwall fractional shortening. Mildly increased left ventricular systolic volume. Severely increased left ventricular relative wall thickness. Moderately decreased left ventricular ejection fraction with global hypokinesis. Right Ventricle Right ventricular dilatation with moderately reduced function. Unable to estimate the right ventricular systolic pressure. Right Atrium Severe right atrial dilatation. Left Atrium Normal left atrial size. Patent foramen ovale present with a [id number] shunt. Mitral Valve Mitral valve thickened. No evidence for mitral valve prolapse. No mitral stenosis. Trace mitral regurgitation. Aortic Valve Trileaflet aortic valve. No aortic valve stenosis or regurgitation. Tricuspid Valve Structurally normal tricuspid valve. No tricuspid regurgitation. No tricuspid stenosis. Pulmonic Valve Pulmonic valve not well visualized. No pulmonic stenosis. No pulmonic regurgitation. Pericardium No pericardial effusion. Aorta Aortic annulus normal. Ascending aorta not well visualized. CONCLUSIONS Severe LV systolic dysfunction with an ejection fraction of 30-35% Patent foramen ovale with [id number] shunt Previewed by: Dr. Petros Brunson MD (Electronically Signed) Final Date: 17 May 2024 17:35
--- NOTE | 2024-05-17 21:29 | P.PN ---
Subjective Progress Note Date: 05/17/24 78-year-old pleasant male came in with complaints of shortness of breath does have history of COPD does not have any history of congestive heart failure. Patient was wheezing on exam was started on systemic steroids inpatient treatment. Patient was also given his azithromycin and Rocephin there is no evidence of pneumonia on this chest x-ray. Patient BNP is elevated to 2800 clinically patient is not in CHF. Patient does have history of atrial fibrillation but denied any history of congestive heart failure patient is mildly hyponatremic as well. 05/17/2024 Patient remains in the intensive care unit as a 3 S. overflow. Patient continues on IV Cardizem, patient is still in atrial fibrillation heart rate up into the 110s. Patient with no acute complaints he does report improvement in his shortness of breath although he is still having some expiratory wheezing. He continues on IV Solu-Medrol and oral azithromycin. Repeat echocardiogram is currently pending at this time. Review of Systems Constitutional: Denied any fatigue denied any fever. Cardio vascular: denied any chest pain, palpitations Gastrointestinal: denied any nausea, vomiting, diarrhea Pulmonary: Denied any shortness of breath cough Neurologic denied any new focal deficits All inpatient medications were reviewed and appropriate changes in these medications as dictated in the interval history and assessment and plan. PHYSICAL EXAMINATION: GENERAL: The patient is alert and oriented x3, not in any acute distress. Well developed, well nourished. HEENT: Pupils are round and equally reacting to light. EOMI. No scleral icterus. No conjunctival pallor. Normocephalic, atraumatic. No pharyngeal erythema. No thyromegaly. CARDIOVASCULAR: S1 and S2 present. No murmurs, rubs, or gallops. PULMONARY:Expiratory wheezing ABDOMEN: Soft, nontender, nondistended, normoactive bowel sounds. No palpable organomegaly. MUSCULOSKELETAL: No joint swelling or deformity. EXTREMITIES: No cyanosis, clubbing, or pedal edema. NEUROLOGICAL: Gross neurological examination did not reveal any focal deficits. SKIN: No rashes. Assessment and plan Acute hypercapnic respiratory failure secondary to COPD exacerbation continue with systemic steroids inhalational treatments, oral azithromycin -Paroxysmal atrial fibrillation currently atrial fibrillation with RVR and continues on IV cardizem, metoprolol increased by cardiology. -Hx of nonischemic cardiomyopathy repeat echocardiogram ordered and pending. -Gastroesophageal flux disease -Hyperlipidemia -Hypertension -Mild hyponatremia will repeat labs tomorrow because of his elevated BNP, not ordering any IV fluids patient appears to be euvolemic at this time DVT prophylaxis: On Xarelto GI prophylaxis Full code Patient remains in the ICU as a 3 south overflow. Continue IV cardizem. Continue cardiac telemetry. Repeat BMP in the AM. The impression and plan of care has been dictated by Rosanna Lima Nurse Practitioner as directed. Dr. Edwin MD I have performed a history and physical examination and medical decision making of this patient, discussed the same with the dictator, and agree with the dictators assessment and plan as written, documented as a scribe. Based on total visit time, I have performed more than 50% of this visit. Objective - Vital Signs Vital signs: Vital Signs Temp 98 F 05/16/24 21:00 Pulse 91 05/17/24 04:00 Resp 24 05/17/24 04:00 BP 120/83 05/17/24 04:00 Pulse Ox 93 L 05/17/24 04:00 FiO2 Intake & Output 05/16/24 05/17/24 05/17/24 18:59 06:59 18:59 Intake Total 0 400 Balance 0 400 Weight 67.585 kg Intake: Oral 0 400 Other: Voiding Method Toilet - Labs CBC & Chem 7: 05/17/24 04:12 05/17/24 04:12 Labs: Abnormal Lab Results - Last 24 Hours (Table) 05/16/24 05/17/24 05/17/24 Range/Units 17:05 04:12 04:12 WBC 14.3 H (3.8-10.6) k/uL RBC 3.91 L (4.30-5.90) m/uL Hgb 12.6 L (13.0-17.5) gm/dL Hct 38.8 L (39.0-53.0) % Plt Count 146 L (150-450) k/uL Sodium 134 L (137-145) mmol/L Creatinine 0.61 L (0.66-1.25) mg/dL Glucose 111 H (74-99) mg/dL POC Glucose (mg/dL) 219 H (70-110) mg/dL Assessment and Plan Time with Patient: Less than 30
[2024-05-17] MEDS: METOPROLOL SUCCINATE (ER) 100 MG TAB.ER.24H PO STA (23:53)
[2024-05-18 06:34] LABS: African American GFR (CKD) >90 (>60 ml/min/1.73 sqM); Anion Gap 2 mmol/L; Blood Urea Nitrogen 17 mg/dL (9-20); Calcium 8.6 mg/dL (8.4-10.2); Carbon Dioxide 32 mmol/L (22-30); Chloride 98 mmol/L (98-107); Glucose 114 mg/dL (74-99); Non-African American GFR(CKD) >90 (>60 ml/min/1.73 sqM); Potassium 4.4 mmol/L (3.5-5.1); Sodium 132 mmol/L (137-145)
--- NOTE | 2024-05-18 07:49 | P.PN ---
Subjective Progress Note Date: 05/18/24 The patient is a 78-year-old gentleman who is known to our service from before with a past medical history significant for CAD with known intermediate disease involving the LAD based on heart catheterization in 2023 as well as nonischemic cardiomyopathy and also persistent atrial fibrillation as well as smoking and COPD and history of "aortic aneurysm" with unknown details the patient sees a vascular surgeon for that on regular basis presented to the hospital complaining of shortness of breath but he was admitted with a progressive dyspnea associated with cough and congestions but no symptoms of any chest pain or chest discomfort or dizziness or lightheadedness or any feeling of heart racing or fluttering or presyncope or syncope or edema in the lower extremities. No change in the weight as well. He was compliant with all of his medications but he was diagnosed with COPD. Unfortunately the patient continues to smoke. He was started on antibiotic along with steroids. Currently he is feeling slightly better. We consulted to see the patient because of atrial fibrillation with RVR and he is known to have persistent atrial fibrillation. Currently he is on Cardizem IV which I am going to stop giving the cardiomyopathy and start the patient back on oral AV maribell meliza agents using beta-meliza with the home dose and monitor the heart rate and adjust the medications if we need to. He is on oral anticoagulation and that resumed. The physical examination is remarkable for irregular rhythm with distant heart sounds and bilateral expiratory wheezing and mild bilateral lower extremities edema noted. May 18, 2024 The patient was seen and evaluated this morning. He is overall doing better. He remains stable hemodynamically. He remains in atrial fibrillation with overall controlled heart rate on the current dose of beta-meliza with Toprol-XL 100 mg p.o. daily. He is on oral anticoagulation. The echo resulted cardiomyopathy with EF around 30% and with that being said and going to maximize medical treatment for cardiomyopathy and adding to beta-meliza Farxiga as well as SGLT2 inhibitors and also add Entresto. The physical examination is remarkable for irregular rhythm with a systolic murmur at the right upper sternal border with a clear breathing sounds bilaterally and no edema was noted Assessment Atrial fibrillation with RVR in a patient with known persistent atrial fibrillation Known nonischemic cardiomyopathy CAD known to be nonobstructive COPD Smoking Cardiomyopathy, nonischemic Multiple comorbid conditions Plan Continue the current dose of beta-meliza Add Entresto Add SGLT2 inhibitors Follow-up with the patient Objective - Vital Signs Vital signs: Vital Signs Temp 97.8 F 05/18/24 04:00 Pulse 105 H 05/18/24 07:41 Resp 16 05/18/24 04:00 BP 97/63 05/18/24 04:00 Pulse Ox 96 05/17/24 16:00 FiO2 Intake & Output 05/17/24 05/18/24 05/18/24 18:59 06:59 18:59 Intake Total 101.333 Balance 101.333 Intake: Intake, IV Titration 101.333 Amount Diltiazem 125 mg In 101.333 Sodium Chloride 0.9% 100 ml @ 5 MG/HR 5 mls/hr IV .Q24H [facility] Rx#:[id number] Other: Voiding Method Toilet Toilet # Voids 1 2 - Labs CBC & Chem 7: 05/17/24 04:12 05/18/24 05:34 Labs: Abnormal Lab Results - Last 24 Hours (Table) 05/17/24 05/17/24 05/18/24 Range/Units 12:26 17:04 05:34 Sodium 132 L (137-145) mmol/L Carbon Dioxide 32 H (22-30) mmol/L Creatinine 0.60 L (0.66-1.25) mg/dL Glucose 114 H (74-99) mg/dL POC Glucose (mg/dL) 140 H 148 H (70-110) mg/dL
[2024-05-18] MEDS: METOPROLOL SUCCINATE (ER) 100 MG TAB.ER.24H PO SCH (08:27)
[2024-05-18] MEDS: DAPAGLIFLOZIN PROPANEDIOL 5 MG TABLET PO SCH (08:31)
[2024-05-18] MEDS: SACUBITRIL/VALSARTAN 24 MG-26 MG TABLET PO SCH (08:31)
--- NOTE | 2024-05-18 16:46 | P.PN ---
Subjective Progress Note Date: 05/18/24 This is a pleasant 78-year-old male patient with a known history of chronic and ongoing tobacco dependence, previous right apical lung pneumonia with residual scar, atrial fibrillation anticoagulated with Xarelto, chronic obstructive pulmonary disease maintained on Trelegy and albuterol HFA, hypertension, hyperlipidemia. He presented here to the emergency room early this morning after he woke up feeling very short of breath. He did receive 125 mg of Solu- Medrol and 2 breathing treatments and was improving. He did have atrial fibrillation with a rapid ventricular response. Chest x-ray reveals no acute pulmonary process. Evidence of COPD. Chronic scarring of the right apex. White count 11.9. Hemoglobin 14.6. Platelets 171. INR 1.4. Sodium 132. Potassium 4.3. Bicarb 23. BUN 17. Creatinine 0.75. Glucose 123. AST 94. ALT 45. Troponin negative x 2. proBNP 2840. He is seen today in consultation in the emergency department. He is sitting up on the stretcher. Awake and alert in no acute distress. He is dyspneic with conversation. Dyspneic with minimal exertion. Maintaining O2 saturations in the 90s on room air. On 05/17/2024, the patient is being seen for a follow-up in the intensive care unit. The patient is known to have advanced COPD and he was hospitalized for an acute COPD exacerbation in addition to atrial fibrillation with rapid ve ntricular response. In terms of his COPD, the patient remains on Bronchodilators and the patient is on DuoNeb nebulized treatments [id number] in addition to IV Solu-Medrol 60 mg every 6 hours and Symbicort maintenance. Noted the patient has been utilizing Trelegy Ellipta on outpatient basis. He is also covered with empiric antibiotics and the patient is currently is on Zithromax 500 mg p.o. daily. He remains on Cardizem drip for A-fib RVR and the patient is currently on 5 mg an hour and his heart rate is under better control. He was also started on metoprolol 50 mg p.o. twice a day and the Cardizem drip will be gradually weaned off. He remains on anticoagulation with Xarelto. He is currently on room air oxygen with a pulse ox of 95%. Remains bronchospastic and wheezy. The white cell count of 14.3 with a heme of 4.6 and a platelet count of 146. BUN is 19 with a creatinine of 0.6 and a sodium levels at 134 with a potassium level of 4.2. Procalcitonin level is at 0.09. Troponin x 2 has been negative and proBNP level is 2840. Chest x-ray from yesterday was consistent with COPD with some hyperinflation. No other significant abilities. No airspace disease. On 05/18/2024, the patient is being seen for a follow-up. The patient continues to improve and the patient remains less short of breath compared to yesterday. Less bronchospastic and wheezy. Remains on DuoNeb nebulized [id number]. The patient is on Symbicort as maintenance. Remains on IV Solu-Medrol 60 mg every 6 hours. He is off the Cardizem drip. Currently is on room air oxygen. He was started on metoprolol for rate control XL 100 mg p.o. daily and is also on anticoagulation with Xarelto. He remains on Zithromax as an empiric antibiotic coverage. The sodium is at 132, bicarb is at 32, BUN 17 with a creatinine 0.6. Calcium level is at 8.6. No other new complaints otherwise for now. Objective - Vital Signs Vital signs: Vital Signs Temp 97.8 F 05/18/24 04:00 Pulse 105 H 05/18/24 07:41 Resp 16 05/18/24 04:00 BP 97/63 05/18/24 04:00 Pulse Ox 96 05/17/24 16:00 FiO2 Intake & Output 05/17/24 05/18/24 05/18/24 18:59 06:59 18:59 Intake Total 101.333 Balance 101.333 Intake: Intake, IV Titration 101.333 Amount Diltiazem 125 mg In 101.333 Sodium Chloride 0.9% 100 ml @ 5 MG/HR 5 mls/hr IV .Q24H [facility] Rx#:[id number] Other: Voiding Method Toilet Toilet Toilet # Voids 1 2 - Exam GENERAL EXAM: Alert, pleasant 78-year-old male, in mild respiratory distress, on room air. HEAD: Normocephalic. EYES: Normal reaction of pupils, equal size. NOSE: Clear with pink turbinates. THROAT: No erythema or exudates. NECK: No masses, no JVD. CHEST: No chest wall deformity. LUNGS: Equal air entry with mild scattered rhonchi. CVS: S1 and S2 normal with no audible murmur, irregular rhythm. ABDOMEN: No hepatosplenomegaly, normal bowel sounds, no guarding or rigidity. SPINE: No scoliosis or deformity SKIN: No rashes CENTRAL NERVOUS SYSTEM: No focal deficits, tone is normal in all 4 extremities. EXTREMITIES: There is 1+ peripheral edema. No clubbing, no cyanosis. Peripheral pulses are intact. - Labs CBC & Chem 7: 05/17/24 04:12 05/18/24 05:34 Labs: Abnormal Lab Results - Last 24 Hours (Table) 05/17/24 05/17/24 05/18/24 Range/Units 12:26 17:04 05:34 Sodium 132 L (137-145) mmol/L Carbon Dioxide 32 H (22-30) mmol/L Creatinine 0.60 L (0.66-1.25) mg/dL Glucose 114 H (74-99) mg/dL POC Glucose (mg/dL) 140 H 148 H (70-110) mg/dL Assessment and Plan Plan: Acute exacerbation of chronic obstructive pulmonary disease, improving and the patient is obviously short of breath Severe COPD and patient is known to have advanced COPD with an FEV1 of 0.94 L which is only 28% of predicted. 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 Maintained on Trelegy Ellipta on an outpatient basis and also maintained on Zithromax 3 times a week at a dose of 250 mg Chronic smoker Atrial fibrillation with a rapid ventricular response, improved, currently off Cardizem drip and the patient's on Toprol-XL 100 mg p.o. daily and anticoagulation with Xarelto History of atrial fibrillation, anticoagulated with Xarelto Chronic and ongoing tobacco dependence Hypertension Hyperlipidemia Chronic biapical scarring and recent PET/CT on 04/22/2024 showed FDG activity in the right upper lobe scar with calcification which is similar in morphology to the earlier scan which was done on 12/29/2023 and this is favored to be infectious/inflammatory in nature. Plan: Continue DuoNeb nebulized treatments [id number] IV Solu-Medrol 60 mg every 6 hours Continue empiric antibiotic coverage with Zithromax 500 mg p.o. daily Procalcitonin level is not elevated C Cardizem drip has been discontinued and the patient is currently on Toprol-XL 100 mg p.o. daily Anticoagulation with Xarelto Increase mobility as tolerated Allow the patient to utilize Trelegy Ellipta from home. For now, the patient is covered with Symbicort Patient can be transferred out of the intensive care unit today.
--- NOTE | 2024-05-18 17:18 | P.PN ---
Subjective Progress Note Date: 05/18/24 78-year-old pleasant male came in with complaints of shortness of breath does have history of COPD does not have any history of congestive heart failure. Patient was wheezing on exam was started on systemic steroids inpatient treatment. Patient was also given his azithromycin and Rocephin there is no thalia dence of pneumonia on this chest x-ray. Patient BNP is elevated to 2800 clinically patient is not in CHF. Patient does have history of atrial fibrillation but denied any history of congestive heart failure patient is mildly hyponatremic as well. 05/17/2024 Patient remains in the intensive care unit as a 3 S. overflow. Patient continues on IV Cardizem, patient is still in atrial fibrillation heart rate up into the 110s. Patient with no acute complaints he does report improvement in his shortness of breath although he is still having some expiratory wheezing. He continues on IV Solu-Medrol and oral azithromycin. Repeat echocardiogram is currently pending at this time. 05/18/2024 Patient remains in the ICU pending bed on 3 south. He continues to report shortness of breath and congested cough. He has been taken off the IV cardizem. Heart rate in the 100s and patient remains in atrial fibrillation. Review of Systems Constitutional: Denied any fatigue denied any fever. Cardio vascular: denied any chest pain, palpitations Gastrointestinal: denied any nausea, vomiting, diarrhea Pulmonary: Denied any shortness of breath cough Neurologic denied any new focal deficits All inpatient medications were reviewed and appropriate changes in these medications as dictated in the interval history and assessment and plan. PHYSICAL EXAMINATION: GENERAL: The patient is alert and oriented x3, not in any acute distress. Well developed, well nourished. HEENT: Pupils are round and equally reacting to light. EOMI. No scleral icterus. No conjunctival pallor. Normocephalic, atraumatic. No pharyngeal erythema. No thyromegaly. CARDIOVASCULAR: S1 and S2 present. No murmurs, rubs, or gallops. PULMONARY:Expiratory wheezing ABDOMEN: Soft, nontender, nondistended, normoactive bowel sounds. No palpable organomegaly. MUSCULOSKELETAL: No joint swelling or deformity. EXTREMITIES: No cyanosis, clubbing, or pedal edema. NEUROLOGICAL: Gross neurological examination did not reveal any focal deficits. SKIN: No rashes. Assessment and plan Acute hypercapnic respiratory failure secondary to COPD exacerbation continue with systemic steroids inhalational treatments, oral azithromycin -Paroxysmal atrial fibrillation currently atrial fibrillation with RVR, metoprolol increased by cardiology. -Hx of nonischemic cardiomyopathy EF 30-35%. -Gastroesophageal flux disease -Hyperlipidemia -Hypertension -Mild hyponatremia will repeat labs tomorrow because of his elevated BNP, not ordering any IV fluids patient appears to be euvolemic at this time DVT prophylaxis: On Xarelto GI prophylaxis Full code Patient remains in the ICU as a 3 south overflow. IV cardizem discontinued. Cardiology planning to optimize medical therapy for the reduced EF. Patient has been started on entresto. Continue cardiac telemetry. Repeat BMP in the AM. The impression and plan of care has been dictated by Rosanna Lima, Nurse Practitioner as directed. Dr. Edwin MD I have performed a history and physical examination and medical decision making of this patient, discussed the same with the dictator, and agree with the dictators assessment and plan as written, documented as a scribe. Based on total visit time, I have performed more than 50% of this visit. Objective - Vital Signs Vital signs: Vital Signs Temp 97.8 F 05/18/24 04:00 Pulse 105 H 05/18/24 07:41 Resp 16 05/18/24 04:00 BP 97/63 05/18/24 04:00 Pulse Ox 96 05/17/24 16:00 FiO2 Intake & Output 05/17/24 05/18/24 05/18/24 18:59 06:59 18:59 Intake Total 101.333 Balance 101.333 Intake: Intake, IV Titration 101.333 Amount Diltiazem 125 mg In 101.333 Sodium Chloride 0.9% 100 ml @ 5 MG/HR 5 mls/hr IV .Q24H [facility] Rx#:[id number] Other: Voiding Method Toilet Toilet Toilet # Voids 1 2 - Labs CBC & Chem 7: 05/17/24 04:12 05/18/24 05:34 Labs: Abnormal Lab Results - Last 24 Hours (Table) 05/17/24 05/17/24 05/18/24 Range/Units 12:26 17:04 05:34 Sodium 132 L (137-145) mmol/L Carbon Dioxide 32 H (22-30) mmol/L Creatinine 0.60 L (0.66-1.25) mg/dL Glucose 114 H (74-99) mg/dL POC Glucose (mg/dL) 140 H 148 H (70-110) mg/dL Assessment and Plan Time with Patient: Less than 30
--- NOTE | 2024-05-19 11:15 | P.PN ---
Subjective Progress Note Date: 05/19/24 The patient is a 78-year-old gentleman who is known to our service from before with a past medical history significant for CAD with known intermediate disease involving the LAD based on heart catheterization in 2023 as well as nonischemic cardiomyopathy and also persistent atrial fibrillation as well as smoking and COPD and history of "aortic aneurysm" with unknown details the patient sees a vascular surgeon for that on regular basis presented to the hospital complaining of shortness of breath but he was admitted with a progressive dyspnea associated with cough and congestions but no symptoms of any chest pain or chest discomfort or dizziness or lightheadedness or any feeling of heart racing or fluttering or presyncope or syncope or edema in the lower extremities. No change in the weight as well. He was compliant with all of his medications but he was diagnosed with COPD. Unfortunately the patient continues to smoke. He was started on antibiotic along with steroids. Currently he is feeling slightly better. We consulted to see the patient because of atrial fibrillation with RVR and he is known to have persistent atrial fibrillation. Currently he is on Cardizem IV which I am going to stop giving the cardiomyopathy and start the patient back on oral AV maribell meliza agents using beta-meliza with the home dose and monitor the heart rate and adjust the medications if we need to. He is on oral anticoagulation and that resumed. The physical examination is remarkable for irregular rhythm with distant heart sounds and bilateral expiratory wheezing and mild bilateral lower extremities edema noted. May 18, 2024 The patient was seen and evaluated this morning. He is overall doing better. He remains stable hemodynamically. He remains in atrial fibrillation with overall controlled heart rate on the current dose of beta-meliza with Toprol-XL 100 mg p.o. daily. He is on oral anticoagulation. The echo resulted cardiomyopathy with EF around 30% and with that being said and going to maximize medical treatment for cardiomyopathy and adding to beta-meliza Farxiga as well as SGLT2 inhibitors and also add Entresto. The physical examination is remarkable for irregular rhythm with a systolic murmur at the right upper sternal border with a clear breathing sounds bilaterally and no edema was noted May 19, 2024 Patient is seen and examined. Patient is now on the cardiac stepdown unit. Patient complains of cough with sputum production and has been treated by pulmonary medicine for COPD exacerbation maintained on IV Solu-Medrol and nebulizer treatments. Patient denies having any chest pain. Blood pressure 116/83, heart rate 107, pulse ox 95% on room air. Telemetry remains atrial fibrillation. Yesterday, Entresto and Farxiga were added to his medication regime. Assessment Persistent atrial fibrillation with RVR, currently rate controlled Known nonischemic cardiomyopathy CAD known to be nonobstructive COPD exacerbation Smoking Cardiomyopathy, nonischemic Multiple comorbid conditions Plan Continue patient on aspirin, atorvastatin, metoprolol succinate, Xarelto Continue patient on Farxiga, Entresto Smoking cessation. Patient will be provided with the ACE quit line information at discharge Nurse practitioner note has been reviewed, I agree with documented findings and plan of care. Patient was seen and examined. Objective - Vital Signs Vital signs: Vital Signs Temp 97.6 F 05/19/24 08:00 Pulse 90 05/19/24 08:03 Resp 18 05/19/24 08:00 BP 116/83 05/19/24 08:00 Pulse Ox 95 05/19/24 08:00 FiO2 Intake & Output 05/18/24 05/19/24 05/19/24 18:59 06:59 18:59 Intake Total 500 Output Total 0 Balance 500 0 Intake: Oral 500 Output: Urine 0 Other: Voiding Method Toilet Toilet # Voids 3 0 - Labs CBC & Chem 7: 05/17/24 04:12 05/18/24 05:34
[2024-05-19] MEDS: IPRATROPIUM-ALBUTEROL 3 ML NEB INHALATION SCH (11:17)
--- NOTE | 2024-05-19 12:27 | US ---
EXAMINATION TYPE: US thyroid st tissue head/neck DATE OF EXAM: 05/19/2024 COMPARISON: PET CLINICAL INDICATION: Male, 78 years old with history of pt. had scheduled outpt. test tomorrow; Lt pa rotid lesion on PET scan TECHNIQUE: Grayscale and color Doppler imaging of the left parotid gland. FINDINGS: There is a 1.0x0.9x0.9cm heterogenous, hypoechoic hypervascular area noted at the left parotid gland IMPRESSION: Heterogenous hypoechoic lesion with large vessels in the area of the left parotid gland. Findings con cerning for mass. Given FDG uptake on PET findings favor Warthin gland tumor. Consider CT neck with I V contrast for comparisons with 01/01/2013 ct neck [facility], , 05/19/2024 12:25 PM
--- NOTE | 2024-05-19 16:06 | P.PN ---
Subjective Progress Note Date: 05/19/24 This is a pleasant 78-year-old male patient with a known history of chronic and ongoing tobacco dependence, previous right apical lung pneumonia with residual scar, atrial fibrillation anticoagulated with Xarelto, chronic obstructive pulmonary disease maintained on Trelegy and albuterol HFA, hypertension, hyperlipidemia. He presented here to the emergency room early this morning after he woke up feeling very short of breath. He did receive 125 mg of Solu- Medrol and 2 breathing treatments and was improving. He did have atrial fibrillation with a rapid ventricular response. Chest x-ray reveals no acute pulmonary process. Evidence of COPD. Chronic scarring of the right apex. White count 11.9. Hemoglobin 14.6. Platelets 171. INR 1.4. Sodium 132. Potassium 4.3. Bicarb 23. BUN 17. Creatinine 0.75. Glucose 123. AST 94. ALT 45. Troponin negative x 2. proBNP 2840. He is seen today in consultation in the emergency department. He is sitting up on the stretcher. Awake and alert in no acute distress. He is dyspneic with conversation. Dyspneic with minimal exertion. Maintaining O2 saturations in the 90s on room air. On 05/17/2024, the patient is being seen for a follow-up in the intensive care unit. The patient is known to have advanced COPD and he was hospitalized for an acute COPD exacerbation in addition to atrial fibrillation with rapid ve ntricular response. In terms of his COPD, the patient remains on Bronchodilators and the patient is on DuoNeb nebulized treatments [id number] in addition to IV Solu-Medrol 60 mg every 6 hours and Symbicort maintenance. Noted the patient has been utilizing Trelegy Ellipta on outpatient basis. He is also covered with empiric antibiotics and the patient is currently is on Zithromax 500 mg p.o. daily. He remains on Cardizem drip for A-fib RVR and the patient is currently on 5 mg an hour and his heart rate is under better control. He was also started on metoprolol 50 mg p.o. twice a day and the Cardizem drip will be gradually weaned off. He remains on anticoagulation with Xarelto. He is currently on room air oxygen with a pulse ox of 95%. Remains bronchospastic and wheezy. The white cell count of 14.3 with a heme of 4.6 and a platelet count of 146. BUN is 19 with a creatinine of 0.6 and a sodium levels at 134 with a potassium level of 4.2. Procalcitonin level is at 0.09. Troponin x 2 has been negative and proBNP level is 2840. Chest x-ray from yesterday was consistent with COPD with some hyperinflation. No other significant abilities. No airspace disease. On 05/18/2024, the patient is being seen for a follow-up. The patient continues to improve and the patient remains less short of breath compared to yesterday. Less bronchospastic and wheezy. Remains on DuoNeb nebulized [id number]. The patient is on Symbicort as maintenance. Remains on IV Solu-Medrol 60 mg every 6 hours. He is off the Cardizem drip. Currently is on room air oxygen. He was started on metoprolol for rate control XL 100 mg p.o. daily and is also on anticoagulation with Xarelto. He remains on Zithromax as an empiric antibiotic coverage. The sodium is at 132, bicarb is at 32, BUN 17 with a creatinine 0.6. Calcium level is at 8.6. No other new complaints otherwise for now. On 05/19/2024, the patient is being seen for a follow-up.. Patient is feeling better and that he has been less bronchospastic and wheezy. He remains on room air oxygen. Shortness of breath is improved considerably. He remains on DuoNeb nebulized treatments [id number]. He remains on IV Solu-Medrol. He remains on Symbicort as maintenance. He is also on a combination of Farxiga, Entresto and metoprolol XL 100 mg p.o. daily. His anticoagulation is also with Xarelto. No blood work from today and yesterday's blood work has been noted. Objective - Vital Signs Vital signs: Vital Signs Temp 97.6 F 05/19/24 08:00 Pulse 90 05/19/24 08:03 Resp 18 05/19/24 08:00 BP 116/83 05/19/24 08:00 Pulse Ox 95 05/19/24 08:00 FiO2 Intake & Output 05/18/24 05/19/24 05/19/24 18:59 06:59 18:59 Intake Total 500 Output Total 0 Balance 500 0 Intake: Oral 500 Output: Urine 0 Other: Voiding Method Toilet Toilet Toilet # Voids 3 0 - Exam GENERAL EXAM: Alert, pleasant 78-year-old male, in mild respiratory distress, on room air. HEAD: Normocephalic. EYES: Normal reaction of pupils, equal size. NOSE: Clear with pink turbinates. THROAT: No erythema or exudates. NECK: No masses, no JVD. CHEST: No chest wall deformity. LUNGS: Equal air entry with mild scattered rhonchi. CVS: S1 and S2 normal with no audible murmur, irregular rhythm. ABDOMEN: No hepatosplenomegaly, normal bowel sounds, no guarding or rigidity. SPINE: No scoliosis or deformity SKIN: No rashes CENTRAL NERVOUS SYSTEM: No focal deficits, tone is normal in all 4 extremities. EXTREMITIES: There is 1+ peripheral edema. No clubbing, no cyanosis. Peripheral pulses are intact. - Labs CBC & Chem 7: 05/17/24 04:12 05/18/24 05:34 Assessment and Plan Plan: Acute exacerbation of chronic obstructive pulmonary disease, improving and the patient is obviously short of breath, improved Severe COPD and patient is known to have advanced COPD with an FEV1 of 0.94 L which is only 28% of predicted. 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 Maintained on Trelegy Ellipta on an outpatient basis and also maintained on Zithromax 3 times a week at a dose of 250 mg Chronic smoker Atrial fibrillation with a rapid ventricular response, improved, currently off Cardizem drip and the patient's on Toprol-XL 100 mg p.o. daily and anticoagulation with Xarelto History of atrial fibrillation, anticoagulated with Xarelto Chronic and ongoing tobacco dependence Hypertension Hyperlipidemia Chronic biapical scarring and recent PET/CT on 04/22/2024 showed FDG activity in the right upper lobe scar with calcification which is similar in morphology to the earlier scan which was done on 12/29/2023 and this is favored to be infectious/inflammatory in nature. Plan: Continue DuoNeb nebulized treatments [id number] Discontinued IV Solu-Medrol start the patient on prednisone burst taper Completed course of Zithromax Procalcitonin level is not elevated Continue Toprol-XL 100 mg p.o. daily Continue Farxiga Continue Entresto Anticoagulation with Xarelto Increase mobility as tolerated Allow the patient to utilize Trelegy Ellipta from home. For now, the patient is covered with Symbicort Arrange home nebulizer Will continue to follow
[2024-05-19] MEDS: predniSONE 20 MG TAB PO SCH (17:05)
--- NOTE | 2024-05-20 05:13 | PN ---
PROGRESS NOTE DATE OF SERVICE: 05/19/2024 SUBJECTIVE: This is a 78-year-old gentleman who was admitted with COPD acute exacerbation, also had abnormal MRI recently. No chest pain. No palpitations. No fever. Left parotid gland abnormality was noted. OBJECTIVE: VITAL SIGNS: Pulse is 102, blood pressure 115/74, respirations 18. CHEST: A few scattered rhonchi and crackles. ABDOMEN: Soft. NERVOUS SYSTEM: Nonfocal. LABORATORY DATA: Noted. ASSESSMENT: 1. Chronic obstructive pulmonary disease acute exacerbation. 2. Paroxysmal atrial fibrillation. 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 4. Hypertension. 5. Hyperlipidemia. RECOMMENDATIONS: Recommend to continue current medications and continue symptomatic treatment. Continue with bronchodilators. Increase ambulation. Repeat labs in the morning. Possible discharge in the next 24 to 48 hours. Outpatient followup with parotid gland tumor. Further recommendations to follow. MMODL / IJN: [id number] /
[2024-05-20 07:32] LABS: Basophils % (A) 0 %; Eosinophils % (A) 0 %; HCT 42.1 % (39.0-53.0); HGB 13.7 gm/dL (13.0-17.5); Lymphocytes # (A) 0.6 k/uL (1.0-4.8); Lymphocytes % (A) 3 %; MCH 31.9 pg (25.0-35.0); MCHC 32.6 g/dL (31.0-37.0); MCV 97.9 fL (80.0-100.0); Mean Platelet Volume 8.3; Monocytes # (A) 1.1 k/uL (0-1.0); Monocytes % (A) 6 %; Neutrophils # (A) 16.7 k/uL (1.3-7.7); Neutrophils % (A) 90 %; Platelet Count 243 k/uL (150-450); RDW 13.6 % (11.5-15.5); WBC 18.5 k/uL (3.8-10.6)
[2024-05-20 08:03] LABS: ALT 65 U/L (4-49); AST 50 U/L (17-59); African American GFR (CKD) >90 (>60 ml/min/1.73 sqM); Albumin 2.8 g/dL (3.5-5.0); Alkaline Phosphatase 90 U/L (38-126); Anion Gap 0 mmol/L; Blood Urea Nitrogen 18 mg/dL (9-20); Calcium 8.3 mg/dL (8.4-10.2); Carbon Dioxide 33 mmol/L (22-30); Chloride 94 mmol/L (98-107); Glucose 93 mg/dL (74-99); Non-African American GFR(CKD) >90 (>60 ml/min/1.73 sqM); Potassium 4.2 mmol/L (3.5-5.1); Sodium 127 mmol/L (137-145); Total Bilirubin 0.6 mg/dL (0.2-1.3); Total Protein 4.9 g/dL (6.3-8.2)
[2024-05-20 11:20] VITALS: BP 121/86; RESP 14; TEMP 97.9
[2024-05-20] MEDS ORDERED: ALPRAZolam 0.25 MG TAB PO PRN (11:42)
[2024-05-20] MEDS ORDERED: ALPRAZolam 0.5 MG TAB PO PRN (11:42)
[2024-05-20] MEDS ORDERED: NITROGLYCERIN SL TABS 0.4 MG TAB SUBLINGUAL PRN (11:42)
[2024-05-20] MEDS ORDERED: SODIUM CHLORIDE 0.9% 1,000 ML in EMPTY BAG 1 BAG IV SCH (11:45)
--- NOTE | 2024-05-20 11:55 | P.PN ---
Subjective Progress Note Date: 05/20/24 The patient is a 78-year-old gentleman who is known to our service from before with a past medical history significant for CAD with known intermediate disease involving the LAD based on heart catheterization in 2023 as well as nonischemic cardiomyopathy and also persistent atrial fibrillation as well as smoking and COPD and history of "aortic aneurysm" with unknown details the patient sees a vascular surgeon for that on regular basis presented to the hospital complaining of shortness of breath but he was admitted with a progressive dyspnea associated with cough and congestions but no symptoms of any chest pain or chest discomfort or dizziness or lightheadedness or any feeling of heart racing or fluttering or presyncope or syncope or edema in the lower extremities. No change in the weight as well. He was compliant with all of his medications but he was diagnosed with COPD. Unfortunately the patient continues to smoke. He was started on antibiotic along with steroids. Currently he is feeling slightly better. We consulted to see the patient because of atrial fibrillation with RVR and he is known to have persistent atrial fibrillation. Currently he is on Cardizem IV which I am going to stop giving the cardiomyopathy and start the patient back on oral AV maribell meliza agents using beta-meliza with the home dose and monitor the heart rate and adjust the medications if we need to. He is on oral anticoagulation and that resumed. The physical examination is remarkable for irregular rhythm with distant heart sounds and bilateral expiratory wheezing and mild bilateral lower extremities edema noted. May 18, 2024 The patient was seen and evaluated this morning. He is overall doing better. He remains stable hemodynamically. He remains in atrial fibrillation with overall controlled heart rate on the current dose of beta-meliza with Toprol-XL 100 mg p.o. daily. He is on oral anticoagulation. The echo resulted cardiomyopathy with EF around 30% and with that being said and going to maximize medical treatment for cardiomyopathy and adding to beta-meliza Farxiga as well as SGLT2 inhibitors and also add Entresto. The physical examination is remarkable for irregular rhythm with a systolic murmur at the right upper sternal border with a clear breathing sounds bilaterally and no edema was noted May 19, 2024 Patient is seen and examined. Patient is now on the cardiac stepdown unit. Patient complains of cough with sputum production and has been treated by pulmonary medicine for COPD exacerbation maintained on IV Solu-Medrol and nebulizer treatments. Patient denies having any chest pain. Blood pressure 116/83, heart rate 107, pulse ox 95% on room air. Telemetry remains atrial fibrillation. Yesterday, Entresto and Farxiga were added to his medication regime.The physical examination is remarkable for irregular rhythm with a systolic murmur at the right upper sternal border with a clear breathing sounds bilaterally and no edema was noted May 20, 2024 Patient seen and examined. He states that his breathing is getting better today. He is expecting to go home today. Blood pressure 121/86, heart rate 113, pulse ox 97% on room air. Repeat blood work reveals WBC 18.5, hemoglobin 13.7, creatinine 0.62, potassium 4.2, sodium 127. The physical examination is remarkable for irregular rhythm with a systolic murmur at the right upper jernigan al border with a clear breathing sounds bilaterally and no edema was noted Assessment Persistent atrial fibrillation with RVR, currently rate controlled Known nonischemic cardiomyopathy CAD known to be nonobstructive COPD exacerbation Smoking Cardiomyopathy, nonischemic Multiple comorbid conditions Plan Continue patient on aspirin, atorvastatin, metoprolol succinate, Xarelto Continue patient on Farxiga, Entresto Smoking cessation. Patient will be provided with the [facility] quit line information at discharge Patient is cleared for discharge from cardiology and may follow-up in the office in 1 to 2 weeks. Cardiology will sign off this case and follow on an as-needed basis. Please reconsult for any new concerns. Nurse practitioner note has been reviewed, I agree with documented findings and plan of care. Patient was seen and examined. Objective - Vital Signs Vital signs: Vital Signs Temp 98.2 F 05/20/24 07:36 Pulse 104 H 05/20/24 08:34 Resp 16 05/20/24 07:36 BP 125/81 05/20/24 07:36 Pulse Ox 96 05/20/24 07:36 FiO2 Intake & Output 05/19/24 05/20/24 05/20/24 18:59 06:59 18:59 Intake Total 1316 Output Total 0 Balance 1316 Weight 68.9 kg Intake: Oral 1316 Output: Urine 0 Other: Voiding Method Toilet Toilet # Voids 2 2 # Bowel Movements 1 - Labs CBC & Chem 7: 05/20/24 06:57 05/20/24 06:57 Labs: Abnormal Lab Results - Last 24 Hours (Table) 05/20/24 05/20/24 Range/Units 06:57 06:57 WBC 18.5 H (3.8-10.6) k/uL Neutrophils # 16.7 H (1.3-7.7) k/uL Lymphocytes # 0.6 L (1.0-4.8) k/uL Monocytes # 1.1 H (0-1.0) k/uL Sodium 127 L (137-145) mmol/L Chloride 94 L (98-107) mmol/L Carbon Dioxide 33 H (22-30) mmol/L Creatinine 0.62 L (0.66-1.25) mg/dL Calcium 8.3 L (8.4-10.2) mg/dL ALT 65 H (4-49) U/L Total Protein 4.9 L (6.3-8.2) g/dL Albumin 2.8 L (3.5-5.0) g/dL
[2024-05-20 12:03] VITALS: PULSE 108
--- NOTE | 2024-05-20 18:41 | P.PN ---
Subjective Progress Note Date: 05/20/24 This is a pleasant 78-year-old male patient with a known history of chronic and ongoing tobacco dependence, previous right apical lung pneumonia with residual scar, atrial fibrillation anticoagulated with Xarelto, chronic obstructive pulmonary disease maintained on Trelegy and albuterol HFA, hypertension, hyperlipidemia. He presented here to the emergency room early this morning after he woke up feeling very short of breath. He did receive 125 mg of Solu- Medrol and 2 breathing treatments and was improving. He did have atrial fibrillation with a rapid ventricular response. Chest x-ray reveals no acute pulmonary process. Evidence of COPD. Chronic scarring of the right apex. White count 11.9. Hemoglobin 14.6. Platelets 171. INR 1.4. Sodium 132. Potassium 4.3. Bicarb 23. BUN 17. Creatinine 0.75. Glucose 123. AST 94. ALT 45. Troponin negative x 2. proBNP 2840. He is seen today in consultation in the emergency department. He is sitting up on the stretcher. Awake and alert in no acute distress. He is dyspneic with conversation. Dyspneic with minimal exertion. Maintaining O2 saturations in the 90s on room air. On 05/17/2024, the patient is being seen for a follow-up in the intensive care unit. The patient is known to have advanced COPD and he was hospitalized for an acute COPD exacerbation in addition to atrial fibrillation with rapid ve ntricular response. In terms of his COPD, the patient remains on Bronchodilators and the patient is on DuoNeb nebulized treatments [id number] in addition to IV Solu-Medrol 60 mg every 6 hours and Symbicort maintenance. Noted the patient has been utilizing Trelegy Ellipta on outpatient basis. He is also covered with empiric antibiotics and the patient is currently is on Zithromax 500 mg p.o. daily. He remains on Cardizem drip for A-fib RVR and the patient is currently on 5 mg an hour and his heart rate is under better control. He was also started on metoprolol 50 mg p.o. twice a day and the Cardizem drip will be gradually weaned off. He remains on anticoagulation with Xarelto. He is currently on room air oxygen with a pulse ox of 95%. Remains bronchospastic and wheezy. The white cell count of 14.3 with a heme of 4.6 and a platelet count of 146. BUN is 19 with a creatinine of 0.6 and a sodium levels at 134 with a potassium level of 4.2. Procalcitonin level is at 0.09. Troponin x 2 has been negative and proBNP level is 2840. Chest x-ray from yesterday was consistent with COPD with some hyperinflation. No other significant abilities. No airspace disease. On 05/18/2024, the patient is being seen for a follow-up. The patient continues to improve and the patient remains less short of breath compared to yesterday. Less bronchospastic and wheezy. Remains on DuoNeb nebulized [id number]. The patient is on Symbicort as maintenance. Remains on IV Solu-Medrol 60 mg every 6 hours. He is off the Cardizem drip. Currently is on room air oxygen. He was started on metoprolol for rate control XL 100 mg p.o. daily and is also on anticoagulation with Xarelto. He remains on Zithromax as an empiric antibiotic coverage. The sodium is at 132, bicarb is at 32, BUN 17 with a creatinine 0.6. Calcium level is at 8.6. No other new complaints otherwise for now. On 05/19/2024, the patient is being seen for a follow-up.. Patient is feeling better and that he has been less bronchospastic and wheezy. He remains on room air oxygen. Shortness of breath is improved considerably. He remains on DuoNeb nebulized treatments [id number]. He remains on IV Solu-Medrol. He remains on Symbicort as maintenance. He is also on a combination of Farxiga, Entresto and metoprolol XL 100 mg p.o. daily. His anticoagulation is also with Xarelto. No blood work from today and yesterday's blood work has been noted. On 05/20/2024, the patient is being seen for a follow-up. Doing well. No specific complaints. Respiratory status is very close to his baseline. Currently on room air oxygen. No new complaints over the past 24 hours. White cell count is 18 with a hemoglobin 15.7 and a platelet count of 243. Sodium is at 127 with a BUN of 18 and a creatinine of 0.6. No chest pain. No other new complaints otherwise for now. Will arrange home nebulizer for this patient. Objective - Vital Signs Vital signs: Vital Signs Temp 98.2 F 05/20/24 07:36 Pulse 104 H 05/20/24 08:34 Resp 16 05/20/24 07:36 BP 125/81 05/20/24 07:36 Pulse Ox 96 05/20/24 07:36 FiO2 Intake & Output 05/19/24 05/20/24 05/20/24 18:59 06:59 18:59 Intake Total 1316 480 Output Total 0 Balance 1316 480 Weight 68.9 kg Intake: Oral 1316 480 Output: Urine 0 Other: Voiding Method Toilet Toilet # Voids 2 2 # Bowel Movements 1 0 - Exam GENERAL EXAM: Alert, pleasant 78-year-old male, in mild respiratory distress, on room air. HEAD: Normocephalic. EYES: Normal reaction of pupils, equal size. NOSE: Clear with pink turbinates. THROAT: No erythema or exudates. NECK: No masses, no JVD. CHEST: No chest wall deformity. LUNGS: Equal air entry with mild scattered rhonchi. CVS: S1 and S2 normal with no audible murmur, irregular rhythm. ABDOMEN: No hepatosplenomegaly, normal bowel sounds, no guarding or rigidity. SPINE: No scoliosis or deformity SKIN: No rashes CENTRAL NERVOUS SYSTEM: No focal deficits, tone is normal in all 4 extremities. EXTREMITIES: There is 1+ peripheral edema. No clubbing, no cyanosis. Peripheral pulses are intact. - Labs CBC & Chem 7: 05/20/24 06:57 05/20/24 06:57 Labs: Abnormal Lab Results - Last 24 Hours (Table) 05/20/24 05/20/24 Range/Units 06:57 06:57 WBC 18.5 H (3.8-10.6) k/uL Neutrophils # 16.7 H (1.3-7.7) k/uL Lymphocytes # 0.6 L (1.0-4.8) k/uL Monocytes # 1.1 H (0-1.0) k/uL Sodium 127 L (137-145) mmol/L Chloride 94 L (98-107) mmol/L Carbon Dioxide 33 H (22-30) mmol/L Creatinine 0.62 L (0.66-1.25) mg/dL Calcium 8.3 L (8.4-10.2) mg/dL ALT 65 H (4-49) U/L Total Protein 4.9 L (6.3-8.2) g/dL Albumin 2.8 L (3.5-5.0) g/dL Assessment and Plan Plan: Acute exacerbation of chronic obstructive pulmonary disease, improving and the patient is obviously short of breath, improved Severe COPD and patient is known to have advanced COPD with an FEV1 of 0.94 L which is only 28% of predicted. 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 Maintained on Trelegy Ellipta on an outpatient basis and also maintained on Zithromax 3 times a week at a dose of 250 mg Chronic smoker Atrial fibrillation with a rapid ventricular response, improved, currently off Cardizem drip and the patient's on Toprol-XL 100 mg p.o. daily and anticoagulation with Xarelto History of atrial fibrillation, anticoagulated with Xarelto Chronic and ongoing tobacco dependence Hypertension Hyperlipidemia Chronic biapical scarring and recent PET/CT on 04/22/2024 showed FDG activity in the right upper lobe scar with calcification which is similar in morphology to the earlier scan which was done on 12/29/2023 and this is favored to be infectious/inflammatory in nature. Plan: Clinically improved Arrange home nebulizer Continue DuoNeb nebulized treatments [id number] on outpatient basis Complete prednisone burst taper Procalcitonin level is not elevated Continue Toprol-XL 100 mg p.o. daily Continue Farxiga Continue Entresto Anticoagulation with Xarelto Increase mobility as tolerated Resume Trelegy Ellipta upon discharge regarding his COPD Follow-up in the pulmonary clinic
[2024-05-21] MEDS ORDERED: HEPARIN SODIUM,PORCINE (1 ML) 2,500 UNIT in SODIUM CHLORIDE 0.9% 250 ML IRRIGATION PRN (07:00)
[2024-05-21] MEDS ORDERED: HEPARIN SODIUM,PORCINE 10,000 UNIT in SODIUM CHLORIDE 0.9% 1,000 ML IRRIGATION PRN (07:00)
[2024-05-21] MEDS ORDERED: ASPIRIN 325 MG TAB PO ONE (07:00)
[2024-05-21] MEDS ORDERED: ATORVASTATIN 80 MG TAB PO ONE (07:00)
--- NOTE | 2024-05-21 12:55 | DS ---
DISCHARGE SUMMARY FINAL DIAGNOSES: 1. Chronic obstructive pulmonary disease acute exacerbation. 2. Congestive heart failure with chronic systolic dysfunction with nonischemic cardiomyopathy, ejection fraction 30%. 3. Paroxysmal atrial fibrillation. 4. 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 5. Hypertension. 6. Hyperlipidemia. 7. Multiple complex medical issues. DISCHARGE DISPOSITION: The patient was discharged in stable condition. HISTORY OF PRESENT ILLNESS: A 78-year-old gentleman, admitted with shortness of breath with COPD acute exacerbation. The 2D echo showed ejection fraction 30%. Cardiology saw the patient, and medication adjusted. Entresto was initiated. Recommend close followup in the outpatient setting. The patient improved significantly. PHYSICAL EXAMINATION: VITAL SIGNS: Stable. CARDIOVASCULAR: S1, S2. RESPIRATORY: Few scattered rhonchi. DISCHARGE DISPOSITION: The patient will be discharged in stable condition. Guarded prognosis. The patient is recommended to initiate: 1. Entresto b.i.d. 2. Farxiga 5 mg daily. 3. Prednisone taper. 4. Aspirin 81 mg q.h.s. 5. DuoNeb q.i.d. 6. Habitrol 7 mg daily. 7. No smoking. 8. Followup labs with Dr. Palomino and follow up with Cardiology. MMODL / IJN: [id number] /
--- NOTE | 2024-05-24 10:03 | CDI ---
Documentation Clarification Form Date: 05/24/2024 09:54:44 AM From: Maribel Zuniga Phone: Admit Date: 05/17/2024 07:52:00 AM Patient Name: Chad Covarrubias Visit Number: [id number] Discharge Date: 05/20/2024 03:09:00 PM ATTENTION: The Clinical Documentation Specialists (CDI) and [facility] Coding Staff appreciate your assistance in clarifying documentation. Please respond to the clarification below the line at the bottom and electronically sign. The CDI & [facility] Coding staff will review the response and follow-up if needed. Please note: Queries are made part of the Legal Health Record. If you have any questions, please contact the author of this message via ITS. Dr. Manny Iverson Acute hypercapnic (hypoxemia) respiratory failure is documented per H&P, Progress Note 05/17 & 05/18 which may lack sufficient clinical evidence/support in the medical record. Additional clarification is requested. Patient history/risk factors: 78yo M, AECOPD, CSHF, NICM, PAF, HTN, HLD, Warthin glandtumorin the left parotid, multiple complex medical issues, smoker Clinical Indicators: NO ABG drawn, 05/16 18:27 RR 17 SpO2 97% 2L NC and at 05/16 21:00 hrs. Patient was 93% RA. Pulmonary consult 05/16 LUNGS: Equal air entry with mild scattered rhonchi. HP 05/16 PULMONARY: Chest is clear to auscultation, no wheezing or crackles. Treatment: Nasal cannula After work up and study, please clarify which diagnosis is most appropriate? [ ] Acute hypercapnic (hypoxemia) Respiratory Failure ruled out [ ] Acute hypercapnic (hypoxemia) Respiratory Failure is a valid diagnosis as evidenced by the following: [ ] Respiratory Insufficiency [ ] Unable to determine [ ] Other, please specify (Template Last Revised: June 2023) Acute hypercapnic (hypoxemia) Respiratory Failure MTDD
== END 2024-05-20 15:09 | disposition home or self-care (01) | DRG 308 ==
LOC: EC 03:12 → 4SSUR 07:01 → 2SICU 18:12 → OBSVTOIN 05-17 07:52 → 3SCARD 05-18 16:04
PROVIDERS: ADMIT Internal Medicine; ATTEND Internal Medicine
DX: I48.19 Other persistent atrial fibrillation (principal); J96.01 Acute respiratory failure with hypoxia; J96.02 Acute respiratory failure with hypercapnia; J44.1 Chronic obstructive pulmonary disease with (acute) exacerbation; E87.1 Hypo-osmolality and hyponatremia; I50.22 Chronic systolic (congestive) heart failure; I11.0 Hypertensive heart disease with heart failure; I42.8 Other cardiomyopathies; D37.030 Neoplasm of uncertain behavior of the parotid salivary glands; E78.5 Hyperlipidemia, unspecified; F17.210 Nicotine dependence, cigarettes, uncomplicated; K21.9 Gastro-esophageal reflux disease without esophagitis; I25.10 Atherosclerotic heart disease of native coronary artery without angina pectoris; J98.4 Other disorders of lung; Z79.01 Long term (current) use of anticoagulants; Z79.51 Long term (current) use of inhaled steroids; Z79.899 Other long term (current) drug therapy
CPT/HCPCS: 36415; 71045; 71046; 76536; 80048; 80053; 83735; 83880; 84145; 84484; 85025; 85027; 85610; 85730; 93005; 93306; 94640; 94667; 94668; 96361; 96365; 96366; 96368; 99291